=== PATIENT | female | born 1985 | race Caucasian/White ===

== ENCOUNTER → 2017-01-01 | Outpatient (CLI) | payer OTHER ==
[2017-01-01 19:37] LABS: BASOPHILS # (AUTO) 0.1 10^3/uL (0.0-0.1); BASOPHILS % (AUTO) 0.7 %; EOSINOPHILS # (AUTO) 0.5 10^3/uL (0.0-0.7); EOSINOPHILS % (AUTO) 5.7 %; HCT - HEMATOCRIT 41.5 % (37.0-47.0); HGB - HEMOGLOBIN 13.4 g/dL (12.0-16.0); LYMPHOCYTES # (AUTO) 1.7 10^3/uL (1.5-3.5); LYMPHOCYTES % (AUTO) 20.3 %; MEAN CORPUSCULAR HEMOGLOBIN 28.6 pg (27.0-31.0); MEAN CORPUSCULAR HGB CONC 32.4 g/dL (32.0-36.0); MEAN CORPUSCULAR VOLUME 88.2 fL (81.0-99.0); MEAN PLATELET VOLUME 6.8 fL (7.9-10.8); MONOCYTES # (AUTO) 0.8 10^3/uL (0.0-1.0); MONOCYTES % (AUTO) 9.3 %; NEUTROPHILS # (AUTO) 5.3 10^3/uL (1.5-6.6); RED CELL DISTRIBUTION WIDTH 14.7 % (12.0-15.0); UNCORRECTED WHITE BLOOD COUNT 8.3 x10^3/uL; WHITE BLOOD COUNT 8.3 x10^3/uL (4.8-10.8)
[2017-01-01 20:16] LABS: ALBUMIN/GLOBULIN RATIO 1.6 (1.0-2.2); BILIRUBIN,TOTAL 0.8 mg/dL (0.2-1.0); BUN - BLOOD UREA NITROGEN 9 mg/dL (6-20); CALCIUM 8.9 mg/dL (8.5-10.3); CARBON DIOXIDE - CO2 25 mmol/L (21-32); CHLORIDE 103 mmol/L (101-111); CHOL/HDL RATIO 4.5 (<4.4); CHOLESTEROL 187 mg/dL; CREATININE 0.6 mg/dL (0.4-1.0); GFR - MDRD 115 (>89); GLUCOSE 94 mg/dL (70-100); HDL CHOLESTEROL 42 mg/dL; LDL/HDL RATIO 2.3 (<4.4); POTASSIUM 3.6 mmol/L (3.5-5.0); SODIUM 137 mmol/L (135-145); TOTAL PROTEIN 6.9 g/dL (6.7-8.2); TRIGLYCERIDES 249 mg/dL; VLDL CHOLESTEROL 50 mg/dL
== END ==
LOC: LAB.WCP 10:45
PROVIDERS: ATTEND Family Medicine
DX: E88.81 Metabolic syndrome and other insulin resistance (principal); R03.0 Elevated blood-pressure reading, without diagnosis of hypertension; G43.909 Migraine, unspecified, not intractable, without status migrainosus
CPT/HCPCS: 36415; 80053; 80061; 84443; 85025

== ENCOUNTER 2017-03-02 15:21 | Outpatient (CLI) | payer OTHER | END 2017-03-02 15:22 | disposition home or self-care (01) | LOC: LAB.WCP 15:21 | PROVIDERS: ATTEND Physician Assistant Medical | DX: N91.2 Amenorrhea, unspecified (principal) | CPT/HCPCS: 36415; 84702 ==

== ENCOUNTER 2017-03-03 20:07 | Outpatient (CLI) | payer OTHER ==
--- NOTE | 2017-03-03 22:05 | Ultrasound Preliminary Report ---
Exam: US OB TRANSVAGINAL IMPRESSION: 1. Single viable intrauterine at EGA 6 weeks 3 days with ROMI 10/24/2017 based on crown-rump length, which is concordant with clinical dates. 2. IUD is present within the uterus below the gestational sac. 3. There is a tiny flavia-gestational hypoechoic focus. RADIA The call report notification system was initiated by Dr. Luisito Antony at 21:49 hrs on 03/03/17. The referring provider could not be reached, report signed to expedite its availability. SITE ID: [id number]
--- NOTE | 2017-03-03 22:05 | Ultrasound Preliminary Report ---
Exam: US OB FIRST TRIMESTER IMPRESSION: 1. Single viable intrauterine at EGA 6 weeks 3 days with ROMI 10/24/2017 based on crown-rump length, which is concordant with clinical dates. 2. IUD is present within the uterus below the gestational sac. 3. There is a tiny flavia-gestational hypoechoic focus. RADIA The call report notification system was initiated by Dr. Luisito Antony at 21:49 hrs on 03/03/17. The referring provider could not be reached, report signed to expedite its availability. SITE ID: [id number]
--- NOTE | 2017-03-03 22:08 | Ultrasound Report ---
EXAM: FIRST TRIMESTER OBSTETRIC ULTRASOUND (Less than 11 weeks) EXAM DATE: 03/03/2017 09:37 PM. CLINICAL HISTORY: AMENORRHEA. Positive test. The patient has an IUD. LMP: 01/15/2017. COMPARISONS: None. TECHNIQUE: Transabdominal and transvaginal ultrasound examination with static image documentation. CLINICAL DATES: EGA 6 weeks 5 days with ROMI 10/22/2017 based on LMP. ASSESSMENT: Gestational Sac: Single intrauterine. Mean gestational sac diameter: 18 mm = 6 weeks 5 days. Embryo: CRL (crown-rump length) 5 mm = 6 weeks 3 days. Cardiac activity: 130 beats per minute. Yolk sac: 3 mm. Amniotic fluid: Not accurately assessed at this gestational age. Early placenta: Not visible at this gestational age. Other: There is a 0.3 x 0.4 cm perigestational hypoechoic focus. MATERNAL STRUCTURES: Uterus: Anteverted. The gestational sac is located above the IUD. Cervix: Closed. Right Ovary/Adnexa: A hypoechoic structure, possible corpus luteum measures approximately 1.6 x 1.9 x 2.2 cm. The ovary measures 4.1 x 2.6 x 2.6 cm, volume 14.2 cc. Left Ovary/Adnexa: Unremarkable. The ovary measures 2.3 x 1.4 x 3.3 cm, volume 5.6 cc. Free Fluid: None. Other: None. IMPRESSION: 1. Single viable intrauterine at EGA 6 weeks 3 days with ROMI 10/24/2017 based on crown-rump length, which is concordant with clinical dates. 2. IUD is present within the uterus below the gestational sac. 3. There is a tiny flavia-gestational hypoechoic focus. RADHAA The call report notification system was initiated by Dr. Luisito Antony at 21:49 hrs on 03/03/17. The referring provider could not be reached, report signed to expedite its availability. Referring Provider Line: [phone] SITE ID: [id number]
== END 2017-03-03 20:08 | disposition home or self-care (01) ==
LOC: DI 20:07
PROVIDERS: ATTEND Family Medicine
DX: Z34.81 Encounter for supervision of other normal pregnancy, first trimester (principal); Z97.5 Presence of (intrauterine) contraceptive device
CPT/HCPCS: 76801; 76817

== ENCOUNTER 2017-03-06 21:08 | Emergency (ER) | payer OTHER ==
--- NOTE | 2017-03-06 21:39 | ED Physician Documentation ---
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: Breast reduction - Present Medications Home Medications: Ambulatory Orders Medication Instructions Recorded Confirmed No Known Home Medications [No 03/06/17 03/06/17 Known Home Medications] - Allergies Allergies/Adverse Reactions: Allergies Allergy/AdvReac Type Severity Reaction Status Date / Time No Known Drug Allergies Allergy Verified 03/06/17 21:14 - Social History Does the pt smoke?: No Smoking Status: Never smoker Does the pt drink ETOH?: No - Immunizations Immunizations are current?: Yes PD ED PE NORMAL - Vitals Vital signs reviewed: Yes - General General: Alert and oriented X 3, No acute distress - HEENT HEENT: Moist mucous membranes - Neck Neck: Supple, no meningeal sign - Cardiac Cardiac: RRR - Respiratory Respiratory: No respiratory distress, Clear bilaterally - Abdomen Abdomen: Soft, Non tender, Non distended - Derm Derm: Warm and dry - Extremities Extremities: No edema - Neuro Neuro: Alert and oriented X 3 - Psych Psych: Normal mood, Normal affect Results - Vitals Vitals: Vital Signs - 24 hr 03/06/17 03/06/17 21:10 22:47 Temperature 36.7 C Heart Rate 78 74 Respiratory 16 18 Rate Blood Pressure 182/104 H 155/96 H O2 Saturation 99 98 Oxygen O2 Source Room air - Labs Labs: Laboratory Tests 03/06/17 03/06/17 03/06/17 22:09 22:09 22:09 WBC 12.5 H RBC 4.70 Hgb 13.8 Hct 40.3 MCV 85.8 MCH 29.3 MCHC 34.1 RDW 14.8 Plt Count 326 MPV 6.4 L Neut # 9.4 H Lymph # 2.1 Dawes # 0.8 Eos # 0.1 Baso # 0.1 Absolute Nucleated RBC 0.00 Nucleated RBC % 0.0 Sodium 134 L Potassium 3.3 L Chloride 102 Carbon Dioxide 23 Anion Gap 9.0 BUN 14 Creatinine 0.8 Estimated GFR (MDRD) 83 L Glucose 124 H Calcium 9.3 Total Bilirubin 0.4 AST 23 ALT 24 Alkaline Phosphatase 56 Total Protein 7.4 Albumin 4.6 Globulin 2.8 Albumin/Globulin Ratio 1.6 Lipase 51 HCG, Quant 64553.00 Urine Color Urine Clarity Urine pH Ur Specific [place] Urine Protein Urine Glucose (UA) Urine Ketones Urine Occult Blood Urine Nitrite Urine Bilirubin Urine Urobilinogen Ur Leukocyte Esterase Urine RBC Urine WBC Ur Squamous Epith Cells Urine Bacteria Ur Microscopic Review Urine Culture Comments 03/06/17 22:09 WBC RBC Hgb Hct MCV MCH MCHC RDW Plt Count MPV Neut # Lymph # Dawes # Eos # Baso # Absolute Nucleated RBC Nucleated RBC % Sodium Potassium Chloride Carbon Dioxide Anion Gap BUN Creatinine Estimated GFR (MDRD) Glucose Calcium Total Bilirubin AST ALT Alkaline Phosphatase Total Protein Albumin Globulin Albumin/Globulin Ratio Lipase HCG, Quant Urine Color YELLOW Urine Clarity CLEAR Urine pH 6.0 Ur Specific [place] <=1.005 Urine Protein NEGATIVE Urine Glucose (UA) NEGATIVE Urine Ketones NEGATIVE Urine Occult Blood MODERATE H Urine Nitrite NEGATIVE Urine Bilirubin NEGATIVE Urine Urobilinogen 0.2 (NORMAL) Ur Leukocyte Esterase NEGATIVE Urine RBC 0-5 Urine WBC 0-3 Ur Squamous Epith Cells FEW Squamous Urine Bacteria Few Ur Microscopic Review INDICATED Urine Culture Comments NOT INDICATED PD MEDICAL DECISION MAKING - ED course Complexity details: reviewed results, re-evaluated patient, considered differential, d/w patient, d/w family, d/w data migration consultant (Dr. Rose (OB) will come and see the patient. ) ED course: Dr. Rose came and evaluated the patient in the emergency department. She removed the IUD. Patient was given a dose of labetalol and Dr. Christine Rose called in a prescription for labetalol to [facility] to start in the morning. The patient has a history of pre-existing hypertension, not on medications currently. Laboratory tests were drawn as well, no acute abnormalities. She will follow-up in the OB clinic this week for repeat blood pressure check as well as repeat ultrasound. Patient counseled regarding signs and symptoms for which I believe and urgent re-evaluation would be necessary. Patient with good understanding of and agreement to plan and is comfortable going home at this time This document was made in part using voice recognition software. While efforts are made to proofread this document, sound alike and grammatical errors may occur. Bedside ultrasound was performed which reveals a gestational sac consistent with dates, but unable to visualize IUP at this time. As she had a recent US, will not repeat formal US today. Departure - Departure Disposition: 01 Home, Self Care Clinical Impression: Threatened affecting intrauterine , Encounter for IUD removal , Hypertension affecting in first trimester Condition: Good Instructions: ED Miscarriage Poss Follow-Up: Johnathan Flores MD [Primary Care Provider] - Christine Rose DO [Provider Admit Priv/Credential] - Within 3 Days Comments: Follow up in the OB clinic for a repeat ultrasound and blood pressure check this week. Dr. Rose has called in a prescription for you for your blood pressure to [facility] to start tomorrow. We gave you a dose tonight. Return if you worsen. Discharge Date/Time: 03/06/17 22:55
[2017-03-06] MEDS ORDERED: LABETALOL 100 MG TABLET PO STA (22:09)
[2017-03-06 22:20] LABS: BASOPHILS # (AUTO) 0.1 10^3/uL (0.0-0.1); BASOPHILS % (AUTO) 0.5 %; EOSINOPHILS # (AUTO) 0.1 10^3/uL (0.0-0.7); HCT - HEMATOCRIT 40.3 % (37.0-47.0); HGB - HEMOGLOBIN 13.8 g/dL (12.0-16.0); LYMPHOCYTES # (AUTO) 2.1 10^3/uL (1.5-3.5); LYMPHOCYTES % (AUTO) 16.5 %; MEAN CORPUSCULAR HEMOGLOBIN 29.3 pg (27.0-31.0); MEAN CORPUSCULAR HGB CONC 34.1 g/dL (32.0-36.0); MEAN CORPUSCULAR VOLUME 85.8 fL (81.0-99.0); MEAN PLATELET VOLUME 6.4 fL (7.9-10.8); MONOCYTES # (AUTO) 0.8 10^3/uL (0.0-1.0); MONOCYTES % (AUTO) 6.4 %; NEUTROPHILS # (AUTO) 9.4 10^3/uL (1.5-6.6); NEUTROPHILS % (AUTO) 75.6 %; RED CELL DISTRIBUTION WIDTH 14.8 % (12.0-15.0); UNCORRECTED WHITE BLOOD COUNT 12.5 x10^3/uL; WHITE BLOOD COUNT 12.5 x10^3/uL (4.8-10.8)
[2017-03-06 22:23] LABS: BILIRUBIN,URINE NEGATIVE (NEGATIVE)
[2017-03-06 22:28] LABS: UA w/ MICROSCOPIC CHARGE YES
[2017-03-06 22:31] LABS: UR CULTURE IF IND NOT INDICATED; WBC,URINE 0-3 /HPF (0-5)
[2017-03-06 22:32] LABS: ALBUMIN/GLOBULIN RATIO 1.6 (1.0-2.2); BILIRUBIN,TOTAL 0.4 mg/dL (0.2-1.0); CALCIUM 9.3 mg/dL (8.5-10.3); CREATININE 0.8 mg/dL (0.4-1.0); POTASSIUM 3.3 mmol/L (3.5-5.0); TOTAL PROTEIN 7.4 g/dL (6.7-8.2)
[2017-03-06 22:49] VITALS: BP 155/96
--- NOTE | 2017-03-08 17:17 | Discharge Plan ---
DATE OF SERVICE: 03/06/2017 Physician: Christine Rose DO IDENTIFICATION: This is a 31-year-old G3, P2-0-0-2, with approximately 6-week intrauterine . LMP is 01/15/2017. HISTORY OF PRESENT ILLNESS: I first learned about the patients case when Dr. Abraham Flores, primary care physician, called me on Wednesday morning, 03/05/2017, with the patient's situation. He had found out that the patient was with an IUD in situ. I then told Dr. Flores we would be happy to see the patient and remove the IUD in the clinic. The patient, however, started having some bleeding and presented to [facility]. I was asked by Dr. Huddleston to see this korin patient. The patient is present here with her significant other, Lawrence. The patient states that though this was not planned is desired. The patient states that she would like to do everything that she can to keep this . Currently, she is denying any abdominal pain. PAST MEDICAL HISTORY: 1. Hypertension that was newly diagnosed in about November or December of this year. She was started on antihypertensives, but was told to stop this after she was told that she was . 2. Migraine headaches. PAST SURGICAL HISTORY: 1. Oral surgery. 2. Breast reduction, 2002. ALLERGIES: NO KNOWN DRUG ALLERGIES. MEDICATIONS: None. SOCIAL HISTORY: Denies any tobacco use. She does consume alcohol on a social basis. The patient does smoke, dab and eat edible marijuana. This is done for both social reasons for headaches, as well as for her sleep. 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 The patient's youngest child is 9 years old. PAST SURGICAL HISTORY: Two term spontaneous vaginal deliveries with both babies weighing 8 pounds 13 ounces. PAST GYNECOLOGIC HISTORY: Her ParaGard IUD was placed about 3 years ago. She has had both the ParaGard and the Mirena IUD in the past, both before and after her previous pregnancies without difficulty. The patient denies any history of sexually transmitted diseases or abnormal Pap smears. She states that with the ParaGard IUD her periods have been much heavier in which she has to use a tampon and a pad and the first day of her menses. FAMILY HISTORY: Noncontributory. REVIEW OF SYSTEMS: Negative unless otherwise stated. PHYSICAL EXAMINATION: VITAL SIGNS: Temperature is 98.1, heart rate 78, blood pressure 182/104, respiratory rate 16, O2 saturations 99%. GENERAL: The patient is a well-developed, well-nourished, female who appears to be her stated age. HEENT: The patient does have a hairy upper lip. Otherwise, within normal limits. ABDOMEN: Soft, nontender. PELVIC: Female external genitalia. Urethra Bartholin's and [place]'s within normal limits. Cervix is mildly posterior with a small white IUD string protruding from the external cervical os approximately 0.25 cm. LABORATORY DATA: Have not been drawn yet. PROCEDURE: I discussed with the patient and her significant other, Lawrence that the current recommendations for to pull the IUD. The recommendation of this would be in order to minimize any future risk of infection or rupture of membranes with the IUD. However, in removing the IUD this may cause her to have a spontaneous . Given the risks and benefits, I still recommended to have the ParaGard IUD removed. After all the patient's and her significant other, Lawrence's, questions were answered to her satisfaction, she verbalized her desire to proceed with removing the ParaGard intrauterine device. A speculum was placed in the vagina. The IUD strings were visualized. The ParaGard IUD strings were grasped gently and pulled. The ParaGard IUD was removed easily without difficulty. There is no bleeding after removing the IUD. The patient tolerated the procedure well. ASSESSMENT: 1. A 31-year-old G3, P2-0-0-2, with approximately 6-week intrauterine . 2. Status post removal of ParaGard intrauterine device. 3. Chronic hypertension, newly diagnosed. PLAN: 1. ParaGard IUD has been removed. 2. Recommend the patient to start taking vitamins as well as calcium. 3. The patient to see us at [facility] this week for a followup ultrasound to reassure us of the viability of the , but also to do a blood pressure check. 4. We will call in a prescription to [email or web address] for labetalol 100 mg 1 tab p.o. b.i.d. most likely will need to increase this dose as the continues. 5. Spontaneous precautions. TD: 03/07/2017 18:22 MTDYohannes
--- NOTE | 2017-03-10 07:12 | CONSULTATION NOTE ---
DATE OF SERVICE: 03/06/2017 Physician: Christine Rose DO IDENTIFICATION: This is a 31-year-old G3, P2-0-0-2, with approximately 6-week intrauterine . LMP is 01/15/2017. HISTORY OF PRESENT ILLNESS: I first learned about the patients case when Dr. Abraham Flores, primary care physician, called me on Wednesday morning with the patient's situation. He had found out that the patie nt was with an IUD in situ. I then told Dr. Flores we would be happy to see the patient and minoo ve the IUD. The patient, however, started having some bleeding and presented to [facility]. I was asked by Dr. Huddleston to see this korin patient. The patient is present here with her significant other, Lawrence. The patient states that though this was not planned is desired. The patient states that she would like to do everything that she can to keep this . Currently, she is denying any abdominal pain. PAST MEDICAL HISTORY: 1. Hypertension that was newly diagnosed in about November or December of this year. She was starte d on antihypertensives, but was told to stop this after she was told that she was . 2. Migraine headaches. PAST SURGICAL HISTORY: 1. Oral surgery. 2. Breast reduction, 2002. ALLERGIES: NO KNOWN DRUG ALLERGIES. MEDICATIONS: None. SOCIAL HISTORY: Denies any tobacco use. She does consume alcohol on a social basis. The patient do es smoke, dab and eat edible marijuana. This is done for both social reasons for headaches, as well as for her sleep. 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 The patient's youngest child is 9 years old. PAST SURGICAL HISTORY: Two term spontaneous vaginal deliveries with both babies weighing 8 pounds 13 ounces. PAST GYNECOLOGIC HISTORY: Her ParaGard IUD was placed about 3 years ago. She has had both the Christine beba and the Mirena IUD in the past, both before and after her previous pregnancies without difficulty. The p atient denies any history of sexually transmitted diseases or abnormal Pap smears. She states that with the ParaGard IUD her periods have been much heavier in which she has to use a tampon and a pad and the first day o f her menses. FAMILY HISTORY: Noncontributory. REVIEW OF SYSTEMS: Negative unless otherwise stated. PHYSICAL EXAMINATION: VITAL SIGNS: Temperature is 98.1, heart rate 78, blood pressure 182/104, respiratory rate 16, O2 sat urations 99%. GENERAL: The patient is a well-developed, well-nourished, female who appears to be her sta shivani age. HEENT: The patient does have a hairy upper lip. Otherwise, within normal limits. ABDOMEN: Soft, nontender. PELVIC: Female external genitalia. Urethra Bartholin's and [place] [employer] [place]'s within normal limits. Cervix is mildly posterior with a small white IUD string protruding from the external cervical os approximately 0.25 c m. LABORATORY DATA: Have not been drawn yet. PROCEDURE: I discussed with the patient and her significant other, Lawrence that the current recommendat ions for to pull the IUD. The recommendation of this would be in order to minimize any future risk of infecti on or rupture of membranes with the IUD. However, in removing the IUD this may cause her to have a spontan eous . Given the risks and benefits, I still recommended to have the ParaGard IUD removed. After all the patient's and her significant other, Lawrence's, questions were answered to her satisfaction, she verbal ized her desire to proceed with removing the ParaGard intrauterine device. A speculum was placed in the vagin a. The IUD strings were visualized. The ParaGard IUD strings were grasped gently and pulled. The ParaGard IUD was removed easily without difficulty. There is no bleeding after removing the IUD. The patient tolerat ed the procedure well. ASSESSMENT: 1. A 31-year-old G3, P2-0-0-2, with approximately 6-week intrauterine . 2. Status post removal of ParaGard intrauterine device. 3. Chronic hypertension, newly diagnosed. PLAN: 1. ParaGard IUD has been removed. 2. Recommend the patient to start taking vitamins as well as calcium. 3. The patient to see us at [facility] this week for a followup ultrasound to reassu re us of the viability of the , but also to do a blood pressure check. 4. We will call in a prescription to [facility] for labetalol 100 mg 1 tab p.o. b.i.d. most karlene vences will need to increase this dose as the continues. 5. Spontaneous precautions. TD: 03/07/2017 18:22
== END 2017-03-06 22:55 | disposition home or self-care (01) ==
LOC: ED 21:08
PROC: 0UPD7HZ Removal of Contraceptive Device from Uterus and Cervix, Via Natural or Artificial Opening (ICD-10-PCS; principal; 2017-03-06)
DX: O20.0 Threatened abortion (principal); Z30.432 Encounter for removal of intrauterine contraceptive device; O10.911 Unspecified pre-existing hypertension complicating pregnancy, first trimester; Z3A.01 Less than 8 weeks gestation of pregnancy
CPT/HCPCS: 36415; 58301; 80053; 81001; 83690; 84702; 85025; 86900; 86901; 99283; 99284; A9270; 81003; 87086

== ENCOUNTER 2017-04-01 12:21 | Outpatient (CLI) | payer OTHER ==
[2017-04-01 12:52] LABS: BILIRUBIN,URINE NEGATIVE (NEGATIVE); GLUCOSE, URINE (UA) NEGATIVE (NEGATIVE); KETONES,URINE (UA) NEGATIVE (NEGATIVE); LEUKOCYTE ESTERASE, URINE SMALL (NEGATIVE); NITRITE,URINE NEGATIVE (NEGATIVE); OCCULT BLOOD,URINE NEGATIVE (NEGATIVE); PH,URINE 7.5 PH (5.0-7.5); PROTEIN,URINE NEGATIVE (NEGATIVE); UROBILINOGEN,URINE 0.2 (NORMAL) E.U./dL (NORMAL)
[2017-04-01 12:58] LABS: AMORPHOUS SEDIMENT,UR Moderate /LPF; BACTERIA,URINE Rare /HPF (None Seen); CLARITY,URINE HAZY (CLEAR); RBC,URINE 0-5 /HPF (0-5); SQUAMOUS EPITHELIAL CELL,UR FEW Squamous (<= Few)
[2017-04-01 13:00] LABS: BASOPHILS # (AUTO) 0.1 10^3/uL (0.0-0.1); BASOPHILS % (AUTO) 0.5 %; EOSINOPHILS # (AUTO) 0.1 10^3/uL (0.0-0.7); EOSINOPHILS % (AUTO) 0.9 %; HGB - HEMOGLOBIN 12.9 g/dL (12.0-16.0); LYMPHOCYTES # (AUTO) 1.8 10^3/uL (1.5-3.5); LYMPHOCYTES % (AUTO) 17.5 %; MEAN CORPUSCULAR HEMOGLOBIN 30.1 pg (27.0-31.0); MEAN CORPUSCULAR HGB CONC 34.1 g/dL (32.0-36.0); MEAN CORPUSCULAR VOLUME 88.1 fL (81.0-99.0); MEAN PLATELET VOLUME 6.4 fL (7.9-10.8); MONOCYTES # (AUTO) 0.9 10^3/uL (0.0-1.0); MONOCYTES % (AUTO) 8.6 %; NEUTROPHILS # (AUTO) 7.4 10^3/uL (1.5-6.6); NEUTROPHILS % (AUTO) 72.5 %; PLT - PLATELET COUNT 353 10^3/uL (130-450); RED BLOOD COUNT 4.31 10^6/uL (4.20-5.40); RED CELL DISTRIBUTION WIDTH 15.9 % (12.0-15.0); WHITE BLOOD COUNT 10.1 x10^3/uL (4.8-10.8)
[2017-04-01 13:03] LABS: ALBUMIN 3.9 g/dL (3.2-5.5); ALBUMIN/GLOBULIN RATIO 1.4 (1.0-2.2); BILIRUBIN,TOTAL 0.4 mg/dL (0.2-1.0); CREATININE 0.6 mg/dL (0.4-1.0); TOTAL PROTEIN 6.7 g/dL (6.7-8.2)
[2017-04-02 12:47] LABS: HIV AG/AB 4TH GEN NON-REACTIVE (NON-REACTIVE)
[2017-04-02 13:36] LABS: HEPATITIS B SURFACE ANTIGEN NON-REACTIVE (NON-REACTIVE)
== END 2017-04-01 12:22 | disposition home or self-care (01) ==
LOC: LAB 12:21
PROVIDERS: ATTEND Obstetrics & Gynecology
DX: O10.011 Pre-existing essential hypertension complicating pregnancy, first trimester (principal); Z36.9 Encounter for antenatal screening, unspecified
CPT/HCPCS: 36415; 80053; 81001; 81599; 82575; 84163; 84702; 85025; 86592; 86762; 86850; 86900; 86901; 87340; 87389

== ENCOUNTER 2017-04-04 12:48 | Outpatient (CLI) | payer OTHER | END 2017-04-04 12:49 | disposition home or self-care (01) | LOC: DI 12:48 | PROVIDERS: ATTEND Obstetrics & Gynecology | DX: O10.011 Pre-existing essential hypertension complicating pregnancy, first trimester (principal) | CPT/HCPCS: 93306 ==

== ENCOUNTER 2017-04-05 18:47 | Observation (INO) | payer OTHER ==
[2017-04-05 20:06] LABS: BASOPHILS % (AUTO) 0.3 %; EOSINOPHILS # (AUTO) 0.1 10^3/uL (0.0-0.7); EOSINOPHILS % (AUTO) 0.8 %; HGB - HEMOGLOBIN 12.8 g/dL (12.0-16.0); LYMPHOCYTES # (AUTO) 1.7 10^3/uL (1.5-3.5); LYMPHOCYTES % (AUTO) 14.7 %; MEAN CORPUSCULAR HEMOGLOBIN 30.1 pg (27.0-31.0); MEAN CORPUSCULAR VOLUME 88.5 fL (81.0-99.0); MEAN PLATELET VOLUME 6.4 fL (7.9-10.8); MONOCYTES # (AUTO) 0.8 10^3/uL (0.0-1.0); MONOCYTES % (AUTO) 6.7 %; NEUTROPHILS # (AUTO) 9.1 10^3/uL (1.5-6.6); NEUTROPHILS % (AUTO) 77.5 %; PLT - PLATELET COUNT 335 10^3/uL (130-450); RED BLOOD COUNT 4.26 10^6/uL (4.20-5.40); RED CELL DISTRIBUTION WIDTH 16.1 % (12.0-15.0); WHITE BLOOD COUNT 11.7 x10^3/uL (4.8-10.8)
[2017-04-05] MEDS ORDERED: LABETALOL 20 MG/4 ML SYRINGE IVP STA ×2 (20:20→20:38)
[2017-04-05 20:21] LABS: ALBUMIN 3.8 g/dL (3.2-5.5); ALBUMIN/GLOBULIN RATIO 1.4 (1.0-2.2); BILIRUBIN,TOTAL 0.6 mg/dL (0.2-1.0); CALCIUM 9.2 mg/dL (8.5-10.3); CREATININE 0.5 mg/dL (0.4-1.0); TOTAL PROTEIN 6.5 g/dL (6.7-8.2)
[2017-04-05] MEDS ORDERED: ACETAMINOPHEN 500 MG TABLET PO STA (20:21)
[2017-04-05 20:29] LABS: BILIRUBIN,URINE NEGATIVE (NEGATIVE); GLUCOSE, URINE (UA) NEGATIVE (NEGATIVE); KETONES,URINE (UA) NEGATIVE (NEGATIVE); LEUKOCYTE ESTERASE, URINE TRACE (NEGATIVE); NITRITE,URINE NEGATIVE (NEGATIVE); OCCULT BLOOD,URINE NEGATIVE (NEGATIVE); PROTEIN,URINE NEGATIVE (NEGATIVE); UROBILINOGEN,URINE 0.2 (NORMAL) E.U./dL (NORMAL)
[2017-04-05 20:30] LABS: CLARITY,URINE HAZY (CLEAR)
[2017-04-05 20:45] LABS: BACTERIA,URINE Few /HPF (None Seen); RBC,URINE 0-5 /HPF (0-5); SQUAMOUS EPITHELIAL CELL,UR MANY Squamous (<= Few)
[2017-04-05] MEDS ORDERED: LABETALOL 20 MG/4 ML SYRINGE IVP ONE (20:46)
--- NOTE | 2017-04-05 20:52 | ED Physician Documentation ---
PD HPI HEADACHE - Stated complaint Stated Complaint: HIGH BLOOD PRESSURE - Chief complaint Chief Complaint: General - History obtained from History obtained from: Patient, Family - History of Present Illness Timing - onset: How many days ago (3) Timing - onset during: Rest Timing - details: Gradual onset, Still present Location: Global Quality: Aching Associated symptoms: No: Fever, Stiff neck, Nausea Contributing factors: Hypertension Similar symptoms before: Work up / diagnostics, Treatment, Follow up Recently seen: Clinic - Additional information Additional information: Patient is a 31 year old female 11 weeks by dates who is presenting to the emergency department for headaches and hypertension. Patient states that she has had a history of htn. Patient was on lisinopril but was switched to labetalol when she was found to be . Patient has been increasing her dose (with her ob) and is now up to 300mg bid. patient states that she was talking to the nurses line today and her pressures remained elevated and she was having headaches so they had her come to the emergency department for evaluation. Upon initial evaluation patient complained of a mild headache and occasional shortness of breath. Patient did have a recent echo and was within normal limits. Review of Systems Constitutional: denies: Fever, Chills Eyes: reports: Photophobia. denies: Loss of vision, Decreased vision Ears: denies: Ear pain Nose: reports: Reviewed and negative Throat: reports: Reviewed and negative Cardiac: denies: Chest pain / pressure, Palpitations, Calf pain Respiratory: denies: Cough, Wheezing GI: denies: Abdominal Pain, Nausea, Vomiting : denies: Dysuria, Frequency, Hesitancy, Discharge, Vaginal bleeding Neurologic: reports: Headache. denies: Near syncope, Syncope, LOC Psychiatric: denies: Depressed, Suicidal Immunocompromised: denies: Immunocompromised PD PAST MEDICAL HISTORY - Past Medical History Cardiovascular: Congestive heart failure Respiratory: None Neuro: None Endocrine/Autoimmune: None GI: None HOGSHEAD WEIGHER: None : None HEENT: None Psych: None Musculoskeletal: None Derm: None - Past Surgical History Past Surgical History: Yes /HOGSHEAD WEIGHER: Breast reduction - Present Medications Home Medications: Ambulatory Orders Medication Instructions Recorded Confirmed Labetalol [Trandate] 3 tab PO BID 04/05/17 04/05/17 - Allergies Allergies/Adverse Reactions: Allergies Allergy/AdvReac Type Severity Reaction Status Date / Time No Known Drug Allergies Allergy Verified 04/05/17 19:06 - Social History Does the pt smoke?: No Smoking Status: Never smoker Does the pt drink ETOH?: No - Immunizations Immunizations are current?: Yes - POLST Patient has POLST: No PD ED PE NORMAL - Vitals Vital signs reviewed: Yes - General General: Alert and oriented X 3, No acute distress - HEENT HEENT: Atraumatic, PERRL, Moist mucous membranes, Pharynx benign - Neck Neck: Supple, no meningeal sign, No JVD - Cardiac Cardiac: RRR - Respiratory Respiratory: No respiratory distress - Abdomen Abdomen: Soft - Derm Derm: Normal color, No rash - Extremities Extremities: No deformity - Neuro Neuro: Alert and oriented X 3, binder lockstitch 2-12 intact, No motor deficit, No sensory deficit, Normal speech Results - Vitals Vitals: Vital Signs - 24 hr 04/05/17 04/05/17 04/05/17 19:03 20:01 20:35 Temperature 36.6 C Heart Rate 82 95 Respiratory 14 16 Rate Blood Pressure 179/100 H 190/111 H 168/110 H O2 Saturation 100 99 04/05/17 04/05/17 20:40 20:50 Temperature Heart Rate 79 Respiratory 16 Rate Blood Pressure 176/103 H 163/110 H O2 Saturation 98 Oxygen O2 Source Room air - Labs Labs: Laboratory Tests 04/05/17 04/05/17 04/05/17 19:50 19:50 19:50 WBC 11.7 H RBC 4.26 Hgb 12.8 Hct 37.7 MCV 88.5 MCH 30.1 MCHC 34.0 RDW 16.1 H Plt Count 335 MPV 6.4 L Neut # 9.1 H Lymph # 1.7 Frio # 0.8 Eos # 0.1 Baso # 0.0 Absolute Nucleated RBC 0.00 Nucleated RBC % 0.0 Sodium 132 L Potassium 3.3 L Chloride 100 L Carbon Dioxide 23 Anion Gap 9.0 BUN 11 Creatinine 0.5 Estimated GFR (MDRD) 142 Glucose 104 H Calcium 9.2 Total Bilirubin 0.6 AST 27 ALT 20 Alkaline Phosphatase 37 L Troponin I < 0.04 B-Natriuretic Peptide Total Protein 6.5 L Albumin 3.8 Globulin 2.7 Albumin/Globulin Ratio 1.4 Lipase 44 Urine Color Urine Clarity Urine pH Ur Specific [place] Urine Protein Urine Glucose (UA) Urine Ketones Urine Occult Blood Urine Nitrite Urine Bilirubin Urine Urobilinogen Ur Leukocyte Esterase Urine RBC Urine WBC Ur Squamous Epith Cells Urine Bacteria Ur Microscopic Review Urine Culture Comments 04/05/17 04/05/17 19:50 19:50 WBC RBC Hgb Hct MCV MCH MCHC RDW Plt Count MPV Neut # Lymph # Frio # Eos # Baso # Absolute Nucleated RBC Nucleated RBC % Sodium Potassium Chloride Carbon Dioxide Anion Gap BUN Creatinine Estimated GFR (MDRD) Glucose Calcium Total Bilirubin AST ALT Alkaline Phosphatase Troponin I B-Natriuretic Peptide 28 Total Protein Albumin Globulin Albumin/Globulin Ratio Lipase Urine Color YELLOW Urine Clarity HAZY Urine pH 6.0 Ur Specific [place] 1.010 Urine Protein NEGATIVE Urine Glucose (UA) NEGATIVE Urine Ketones NEGATIVE Urine Occult Blood NEGATIVE Urine Nitrite NEGATIVE Urine Bilirubin NEGATIVE Urine Urobilinogen 0.2 (NORMAL) Ur Leukocyte Esterase TRACE H Urine RBC 0-5 Urine WBC 4-5 Ur Squamous Epith Cells MANY Squamous H Urine Bacteria Few Ur Microscopic Review INDICATED Urine Culture Comments NOT INDICATED - Rads (name of study) chest x-ray Radiology: Final report received (no acute disease process) Procedures - Bedside sono Bedside sono by EMP: pelvic/ob viable iup with fhr of 171 PD MEDICAL DECISION MAKING - ED course Complexity details: reviewed old records, reviewed results, re-evaluated patient , considered differential, d/w patient, d/w framing consultant ED course: Patient was seen and examined at bedside. ekg was performed. iv access was gained and labs were drawn. patient denied any acute chest pain. Patient was treated with labetalol 40mg IV and a gram of tylenol. Patient's blood work was fairly unremarkable but the blood pressures were not improving. Patient was treated with another dose of labetalol 40mg IV. chest x-ray was performed and was within normal limits. bedside ultrasound was performed and was within normal limits with a fhr of 171. patient's case was discussed with Dr. Lopez, covering ob. He recommended observation under his care. Patient was treated with additional 10mg of hydralizine. Patient was made aware of the decision and placed in observation. Departure - Departure Disposition: ED Place in Observation Clinical Impression: Hypertension affecting in first trimester Condition: Stable
--- NOTE | 2017-04-05 21:32 | XRAY Preliminary Report ---
Exam: XR CHEST 1 VIEW X-RAY IMPRESSION: No acute disease. [facility] SITE ID: [id number]
--- NOTE | 2017-04-05 21:32 | XRAY Report ---
EXAM: CHEST RADIOGRAPHY EXAM DATE: 04/05/2017 09:01 PM. CLINICAL HISTORY: Hypertensive, short of breath. COMPARISON: None. TECHNIQUE: 1 view. FINDINGS: Lungs/Pleura: Clear. No effusion or pneumothorax. Mediastinum: Within exam limitations, the cardiomediastinal contour is normal. Upper lobe vessels not distended. Other: Old left clavicle fracture. IMPRESSION: No acute disease. [facility] Referring Provider Line: [phone] SITE ID: [id number]
[2017-04-05] MEDS ORDERED: hydrALAZINE INJ 20 MG/ML VIAL IVP STA (21:43)
[2017-04-05] MEDS ORDERED: ONDANSETRON ODT 4 MG TABLET TL PRN (23:31)
[2017-04-05] MEDS ORDERED: LACTATED RINGERS 1,000 ML IV SCH (23:45)
[2017-04-06] MEDS ORDERED: POTASSIUM CHLORIDE 20 MEQ TABLET PO SCH (00:44)
[2017-04-06] MEDS ORDERED: LACTATED RINGERS 1,000 ML IV SCH (00:44)
[2017-04-06] MEDS: LABETALOL 100 MG TABLET PO SCH ×2 (00:53→09:24)
[2017-04-06] MEDS: ACETAMINOPHEN 500 MG TABLET PO PRN ×2 (00:53→09:25)
--- NOTE | 2017-04-06 05:08 | CONSULTATION NOTE ---
DATE OF SERVICE: 04/06/2017 Physician: Keri Olivo MD HISTORY OF PRESENT ILLNESS: This is a 31-year-old white female with a negative past medical history. She has had 2 healthy pregnancies that came to term and she delivered and the children are healthy. She states she had not seen a doctor in a long time up until December of last year and was found to have hypertension and started on lisinopril for control. She then got and her lisinopril was changed to labetalol. Over the past month or so she has had difficult to control blood pressure despite being compliant with her labetalol. She is coming to the emergency room several times over the past several days because of blood pressure control and today because of a headache. Blood pressure on today's emergency room visit was excessive at 180/110, and she was placed in observation for further BP and headache management and frequent blood pressure checks. The covering ADVERTISING CAMPAIGN MANAGER spoke to me about her, described that she is not in eclampsia and requested a Consult for management of hypertension. ALLERGIES: NONE. MEDICATIONS AT HOME: 1. Labetalol 200 p.o. b.i.d. now increased to 300 p.o. b.i.d. and about to change to 400 p.o. b.i.d. 2. She received hydralazine 10 mg IV x1 in the ER. 3. She received Tylenol through the ER. FAMILY HISTORY: Her father had hypertension and [place]. Her mother is healthy, but her maternal grandmother had hypertension and had 5 strokes. She has 1 sibling who is healthy without hypertension and is also currently without HTN. Her 2 living children are healthy. SOCIAL HISTORY: She is a nonsmoker, who never smoked, uses rare marijuana. No illicit drug use. She drinks no alcohol during . 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 REVIEW OF SYSTEMS: A comprehensive review of systems was performed and the pertinent positives are in the HPI and Social History. PHYSICAL EXAMINATION: GENERAL: Young white female supine in bed, in no distress. VITAL SIGNS: Blood pressure 178/113 in the emergency room. Her best blood pressure has dropped to 147/79. Her most recent blood pressure was 165/99. Her heart rate is in the 80s and 90s in sinus rhythm. She is afebrile, room air saturation 98%. HEENT: Unremarkable. Her oral mucosa is moist. NECK: No JVD supine. No carotid bruits or thyromegaly or lymphadenopathy. CHEST: Clear. HEART: Sounds normal. ABDOMEN: Soft. No bruits heard. Normal bowel sounds. Nontender. EXTREMITIES: No clubbing, cyanosis or edema. NEUROLOGIC: Intact. Yesterday as an outpatient, she had a cardiac Echo which was within normal limits. Today, she had a chest x-ray which is also within normal limits. The thoracic vessels are not distended. LABORATORY DATA: White blood count 11.7, normal differential. Hemoglobin 12.8 , platelet count 335. No INR was done. Sodium 132, potassium 3.3, BUN 11, creatinine 0.5. Normal liver tests and alkaline phosphatase. Troponin is not detectable. BNP normal at 28. Lipase normal. Urinalysis had a pH of 6 and was essentially normal. No EKG was done. IMPRESSION/DIAGNOSES: 1. Hypertension. 2. . 3. Hypokalemia. PLAN: I recommend continuation of hydralazine in a p.o. form in combination with her labetalol for blood pressure control, as long as hydralazine has a low risk profile for the fetus. Place on telemetry as labetolol can cause bradycardia, as a B-oscar. A low-sodium diet is advised and this was reviewed with the patient, especially because she is a summer clerk. She states she has already decreased salt intake such as "eating a lot of pickles". Replace her potassium, as potassium in a normal range indirectly helps create a lower blood pressure. Treat her pain with Tylenol; the pain alone could be raising blood pressure slightly. The patient needs workup for a primary cause of hypertension, the most common being renal artery stenosis or aortic coarctation. Also possible are hyperadrenal syndrome or elevated aldosterone. A urine 24-hour collection and Nephrology consult could be done as an outpatient for evaluation of these. If the patient feels better and has a better BP tomorrow, she can be discharged with p.r.n. Tylenol, labetalol at a dose that does not create bradycardia and hydralazine orally at either 10 t.i.d. or q.i.d. or 25 t.i.d. (sine this is a short-acting agent and there are no long-acting forms of hydralazine). She needs to follow up with her PCP and ADVERTISING CAMPAIGN MANAGER doctors for all of the above including the and status of the fetus. Thank you for allowing me to participate in the care of this patient. DEEP VENOUS THROMBOSIS PROPHYLAXIS: This is up to her ADVERTISING CAMPAIGN MANAGER admitting doctor. CODE STATUS: FULL CODE. ATTESTATION: The patient is expected to be discharged or transferred to another facility within 96 hours: Yes. TD: 04/06/2017 06:07 MTDYohannes
[2017-04-06] MEDS ORDERED: hydrALAZINE 10 MG TABLET PO SCH ×2 (06:00→09:00)
[2017-04-06 06:25] LABS: CALCIUM 8.8 mg/dL (8.5-10.3); CREATININE 0.5 mg/dL (0.4-1.0)
[2017-04-06] MEDS ORDERED: POTASSIUM CHLORIDE 10 MEQ CAPSULE PO SCH (08:00)
--- NOTE | 2017-04-06 08:24 | PROVIDER PROGRESS NOTE ---
Subjective - Prog Note Date Prog Note Date: 04/06/17 Prog Note Time: 08:21 - Subjective Pt reports feeling: Improved (Ptis Currently in Renal US.) Objective - Vital Signs/Intake & Output Reviewed Vital Signs: Yes Vital Signs: Vital Signs x48h Temp Pulse Resp BP Pulse Ox 04/06/17 07:57 37.3 C 73 18 131/67 H 99 04/06/17 06:19 36.7 C 82 18 140/79 H 99 04/06/17 02:01 81 16 146/76 H 98 Intake & Output: Intake & Output 04/03/17 04/04/17 04/05/17 04/06/17 23:59 23:59 23:59 23:59 Intake Total 350 Output Total 1100 Balance -750 - Lab Results Fish Bones: 04/05/17 19:50 04/06/17 06:04 Other Labs: Lab Results x24hrs 04/06/17 Range/Units 06:04 Sodium 136 (135-145) mmol/L Potassium 4.1 (3.5-5.0) mmol/L Chloride 106 (101-111) mmol/L Carbon Dioxide 22 (21-32) mmol/L Anion Gap 8.0 (6-13) BUN 8 (6-20) mg/dL Creatinine 0.5 (0.4-1.0) mg/dL Estimated GFR (MDRD) 142 (>89) Glucose 93 (70-100) mg/dL Calcium 8.8 (8.5-10.3) mg/dL Assessment/Plan - Problem List (1) Hypertension affecting in first trimester Impression: Pt is currently in renal US. BP controlled on Hydralizine ad labetolol. Looking for renal stenosis.
[2017-04-06 11:15] VITALS: BP 127/63
--- NOTE | 2017-04-06 12:16 | PROVIDER PROGRESS NOTE ---
Subjective - Prog Note Date Prog Note Date: 04/06/17 Prog Note Time: 12:14 - Subjective Pt reports feeling: Improved (Pt feeling well tolerating meds well) Objective - Vital Signs/Intake & Output Reviewed Vital Signs: Yes Vital Signs: Vital Signs x48h Temp Pulse Resp BP Pulse Ox 04/06/17 11:00 36.6 C 84 18 127/63 97 04/06/17 07:57 37.3 C 73 18 131/67 H 99 04/06/17 06:19 36.7 C 82 18 140/79 H 99 Intake & Output: Intake & Output 04/03/17 04/04/17 04/05/17 04/06/17 23:59 23:59 23:59 23:59 Intake Total 1382 Output Total 1580 Balance -198 - Objective General Appearance: positive: No acute distress, Alert Eyes Bilateral: positive: Normal inspection, PERRL, EOMI Respiratory: positive: Chest non-tender, No respiratory distress, Breath sounds nml Cardiovascular: positive: Regular rate & rhythm, No murmur, No gallop - Lab Results Fish Bones: 04/05/17 19:50 04/06/17 06:04 Other Labs: Lab Results x24hrs 04/06/17 Range/Units 06:04 Sodium 136 (135-145) mmol/L Potassium 4.1 (3.5-5.0) mmol/L Chloride 106 (101-111) mmol/L Carbon Dioxide 22 (21-32) mmol/L Anion Gap 8.0 (6-13) BUN 8 (6-20) mg/dL Creatinine 0.5 (0.4-1.0) mg/dL Estimated GFR (MDRD) 142 (>89) Glucose 93 (70-100) mg/dL Calcium 8.8 (8.5-10.3) mg/dL - Other Results/Comments Other Results/Comments: Renal ultrasound prelim normal. Assessment/Plan - Problem List (1) Hypertension affecting in first trimester Impression: excellent conrtol Discharge to home. Discharge meds Labetolol 400 mg bid hydralizine 10 mg qid. RTC 1 week Pt instructed to start baby ASA daily.
--- NOTE | 2017-04-06 12:20 | Discharge Plan ---
Discharge Plan Disposition: 01 Home, Self Care Condition: Good Diet: Regular Activity Restrictions: No Restrictions Shower Restrictions: No Driving Restrictions: No Weight Bearing: Full Weight No Smoking: If you smoke, Please STOP! Call for help. Follow-up with: Johnathan Flores MD [Primary Care Provider] - Idris Lopez MD [Provider Admit Priv/Credential] -
--- NOTE | 2017-04-06 18:41 | Ultrasound Report ---
RENAL ARTERY DUPLEX: 04/06/2017 CLINICAL INDICATION: Hypertension. TECHNIQUE: Real-time sonographic vascular imaging was performed by the school manager through the renal arteries utilizing both color-flow and Doppler flow analysis. Multiple customer development representative static images were saved for review RIGHT RENAL SIZE: 10.7 x 6.3 x 6.4 cm LEFT RENAL SIZE: 12.2 x 5.7 x 5.8 cm SEGMENTAL ARTERY PSV RI PSV RI Upper Pole 12 0.56 19 0.63 Mid Pole 17 0.62 19 0.58 Lower Pole 16 0.65 17 0.64 RIGHT RENAL ARTERY PSV RENAL ARTERY/AORTA RATIO Origin 125 1.17 Proximal 160 1.50 Mid 167 1.56 Distal 98 0.92 LEFT RENAL ARTERY PSV RENAL ARTERY/AORTA RATIO Origin 107 1.0 Proximal 154 1.44 Mid 125 1.17 Distal 65 0.61 PROX AORTA PSV: 107 cm/sec RRV patent: Yes LRV patent: Yes CRITERIA FOR CLASSIFICATION OF RENAL ARTERY DISEASE BY DUPLEX SCANNING RENAL ARTERY DIAMETER REDUCTION RENAL ARTERY PSV RAR Normal < 180 cm/sec < 3.5 < 60% >/= 180 cm/sec < 3.5 >/= 60% >/= 180 cm/sec >/=3.5 Occlusion (100%) No Signal No signal FINDINGS The right renal artery is well visualized throughout its length. Velocities and ratios are normal. The right renal vein is patent. Resistive indices are normal. The right kidney measures 10.7 x 6.4 x 6.3 cm, and demonstrates no hydronephrosis. The left renal artery is well visualized throughout its length. Velocities and ratios are normal. The left renal vein is patent. Resistive indices are normal. The left kidney measures 12.2 x 5.8 x 5.7 cm, and demonstrates no hydronephrosis. IMPRESSION: Normal renal artery duplex. TD: 04/06/2017 19:41 MTDYohannes
== END 2017-04-06 12:48 | disposition home or self-care (01) ==
LOC: ED 18:47 → OBS 23:31
PROVIDERS: ADMIT Obstetrics & Gynecology; ATTEND Obstetrics & Gynecology
DX: O10.911 Unspecified pre-existing hypertension complicating pregnancy, first trimester (principal); O99.281 Endocrine, nutritional and metabolic diseases complicating pregnancy, first trimester; E87.6 Hypokalemia; Z3A.11 11 weeks gestation of pregnancy; Z79.899 Other long term (current) drug therapy; Z86.79 Personal history of other diseases of the circulatory system; Z82.49 Family history of ischemic heart disease and other diseases of the circulatory system; Z82.3 Family history of stroke
CPT/HCPCS: 36415; 71045; 80048; 80053; 81001; 83690; 83880; 84484; 85025; 93005; 93975; 96361; 96374; 96375; 96376; 99218; 99285; A9270; J7120; Q0162; 81003; 87086

== ENCOUNTER 2017-04-08 16:56 | Observation (INO) | payer OTHER ==
--- NOTE | 2017-04-08 17:12 | ED Physician Documentation ---
History of Present Illness - Stated complaint Stated Complaint: HIGH BP/12 WEEKS PREG - Chief complaint Chief Complaint: General - History obtained from History obtained from: Patient (pt sent from OB office for HTN and 12 weeks EGA. pt denied any vaginal bleeding, cramping.) Review of Systems Constitutional: denies: Fever, Chills Eyes: reports: Decreased vision. denies: Loss of vision Ears: denies: Tinnitus/ringing Cardiac: denies: Chest pain / pressure, Palpitations Respiratory: denies: Dyspnea, Cough GI: denies: Abdominal Pain, Nausea, Vomiting, Constipation, Diarrhea : reports: Now EGA (12 weeks). denies: Dysuria, Frequency, Vaginal bleeding Skin: denies: Rash Musculoskeletal: denies: Neck pain, Back pain Neurologic: denies: Generalized weakness, Headache PD PAST MEDICAL HISTORY - Past Medical History Cardiovascular: Murmur Respiratory: None Neuro: None Endocrine/Autoimmune: None GI: None CLINICAL RESEARCH NURSE: None : None HEENT: None Psych: None Musculoskeletal: None Derm: None - Past Surgical History Past Surgical History: Yes /CLINICAL RESEARCH NURSE: Breast reduction - Present Medications Home Medications: Ambulatory Orders Medication Instructions Recorded Confirmed Labetalol [Trandate] 400 mg PO BID 04/05/17 04/08/17 Aspirin 81 mg PO DAILY 04/08/17 04/08/17 Hydralazine HCl 10 mg PO QID 04/08/17 04/08/17 - Allergies Allergies/Adverse Reactions: Allergies Allergy/AdvReac Type Severity Reaction Status Date / Time No Known Drug Allergies Allergy Verified 04/05/17 19:06 - Social History Does the pt smoke?: No Smoking Status: Never smoker Does the pt drink ETOH?: No - Immunizations Immunizations are current?: Yes - POLST Patient has POLST: No PD ED PE NORMAL - Vitals Vital signs reviewed: Yes - General General: Alert and oriented X 3, No acute distress - HEENT HEENT: Atraumatic, Moist mucous membranes - Cardiac Cardiac: RRR, No murmur - Respiratory Respiratory: No respiratory distress, Clear bilaterally - Derm Derm: Normal color, No rash - Neuro Neuro: Alert and oriented X 3 Eye Opening: Spontaneous Motor: Obeys Commands Verbal: Oriented GCS Score: 15 - Psych Psych: Normal mood, Normal affect Results - Vitals Vitals: Vital Signs - 24 hr 04/08/17 17:00 Temperature 36.8 C Heart Rate 89 Respiratory 17 Rate Blood Pressure 170/99 H O2 Saturation 99 Oxygen O2 Source Room air PD MEDICAL DECISION MAKING - ED course Complexity details: d/w patient ED course: OB asked from only an IV, no meds to lower BP and no blood work. Will admit. Departure - Departure Disposition: 66 [facility] DC/Xfer Clinical Impression: Hypertension affecting , Condition: Stable
[2017-04-08] MEDS ORDERED: SODIUM CHLORIDE FLUSH 0.9% 10 ML SYRINGE IVP PRN (17:54)
[2017-04-08] MEDS ORDERED: ACETAMINOPHEN 325 MG TABLET PO PRN (17:54)
[2017-04-08] MEDS ORDERED: ZOLPIDEM 5 MG TABLET PO PRN (17:54)
[2017-04-08] MEDS ORDERED: hydrALAZINE 10 MG TABLET PO SCH (19:00)
--- NOTE | 2017-04-08 20:56 | HISTORY & PHYSICAL EXAMINATION ---
DATE OF SERVICE: Physician: Idris Jose MD ADMISSION DIAGNOSES: 1. Uncontrolled hypertension despite medical treatment. 2. Headache and visual changes. 3. Fifteen week gestation. HISTORY OF PRESENT ILLNESS: The patient is a 31-year-old, , 3, para 2 woman who has been identified in clinic as having severe hypertension, and was admitted to observation by Dr. Lopez on Wednesday. During Internal medicine workup, Her antihypertensive medications were eventually titrated up for BP control with labetalol 400 mg b.i.d. and hydralazine 10 mg q.i.d. Her baseline blood pressures on that admission were 170s/110s. Renal artery ultrasound was normal. Creatinine clearance was normal. Echocardiogram found borderline cardiac enlargement with no valvular heart disease or wall motion abnormalities. When she was released her blood pressure was in the 130s /80s. The patient had been previously referred to Maternal Medicine Service but found it difficult to obtain an appointment. She did not return to work after release on Wednesday and was compliant with her medication schedule. Despite meds, her blood pressures were 170s/110s. She reports a generalized headache and associated visual changes including scintillation. 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 Right uni-lateral Blindness is treated by ophthalmology group. She cannot recall thrombophilia or antiphospholipid testing. She has no prior history of hypertension or cardiovascular disease. Approximately 2 months ago when she began workup with Dr. Flores for her blood pressure was 150/90s and she was begun on lisinopril which failed to control her blood pressure. In the meantime, she experienced IUD failure and unintentionally became . The IUD had been in place for 3 years and seemed to be effective. Earlier in this Dr. Christine Rose removed it in the office. There is a familial history of hypertension with her Grandmother suffered 5 CVAs. The patient is calm disposition and states that she has no history of anxiety disorder. During her last , she experienced elevated blood pressures at term roughly 147/mid 90s Without preeclampsia. ALLERGIES: NONE. MEDICATIONS: 1. Labetalol 400 b.i.d. 2. Hydralazine 10 mg q.i.d. 3. Mini dose aspirin FAMILY HISTORY: Father had hypertension and VA. Mother is healthy but maternal grandmother had hypertension and 5 strokes. Her sibling is currently normotensive. Children are healthy. 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 She is a nonsmoker but on rare occasion used marijuana. She has never used any injectable drugs or stimulants. She was a social drinker but currently has not consumed alcohol. Her life situation does have s tressors such as , remarriage and establishing a new business. REVIEW OF SYSTEMS: CONSTITUTIONAL: The patient reports no malaise, fevers, chills or systemic symptoms. HEENT: Right eye blindness is noted both before due to venous event; spots and flashes before her Left eye. RESPIRATORY: Negative. CARDIAC: Occasional bursts of rapid pulse. GASTROINTESTINAL: Negative. GENITOURINARY: - reference record. EXTREMITIES: No calf tenderness, cramping, etc. NEUROLOGIC: No focal sensation changes or weakness. DERMATOLOGIC: No rash. LYMPHATIC: No swollen lymph nodes. PHYSICAL EXAMINATION: GENERAL: Well groomed, pleasant, sitting in a chair, fluid speech, cooperative , alert and oriented. VITAL SIGNS: 177/112. HEENT: Neck supple. No thyromegaly. Ophthalmic scope Findings the right pupil fixed and dilated, Disc fuzzy possible mild papilledema. No JVD. Dentition in good repair. Moist mucous membranes. CHEST: Lungs clear to auscultation. No wheeze. HEART: Regular. Flow murmur of No gallop. ABDOMEN: Nondistended, soft. Bowel tones present. at pelvic brim. GENITOURINARY: A formal pelvic exam was not done because there were no complaints and it would add added stress and boost her blood pressure. EXTREMITIES: Warm, moves all 4 extremities well, no edema. NEUROLOGIC: Cranial nerves grossly intact; sensory function grossly intact. Moves all 4 extremities well. Patellar reflexes 2+ and equal. ADMISSION LABS: Pending. ASSESSMENT AND PLAN: The patient has difficult to control hypertension in the first trimester. Generally in the first trimester blood pressure is little changed or minor changes occur (plus or minus 5 points) due to a slight increase in blood volume. The worsening Hypertension probably predates the and the progression is becoming apparent with the close scrutiny of obstetric care. There are some echo changes in terms of cardiac size that shows that HTN has been present for a time, but is not necessarily chronic or longstanding. Valvular disease has been effectively ruled out. Her creatinine clearance and renal flow studies are normal, making renal disease less likely. She does report bouts of palpitations, sweating, which do not seem to be linked with anxiety attacks. Given the blood pressure levels and the need for diagnosis, search for pheochromocytoma would be prudent. Her venous event in the right eye is interesting and may have some link to her hypertension. Thrombophilia or Antithrombin lipid syndrome often underlies a worsening hypertensive course in . Unfortunately, the usual labs are not reliable for diagnosis in . The patient has already been started on mini dose aspirin. Guidance from Maternal Medicine would be useful. The patient has a headache and visual changes that could be from the hypertension alone or due to an underlying central nervous system problem. Central nervous system vascular malformation could be possible and link to the vascular event in her right eye. An MRI of the central nervous system is necessary. PLAN: 1. Admission and stabilization of blood pressure. We will probably have to increase her labetalol and hydralazine. A maximum dose of 2400 mg of labetalol is possible, depending on resultant side effects symptoms. I discussed this with Dr. Fuchs. 2. Diagnostic possibilities include pheochromocytoma, severe essential hypertension And [id number] syndrome. I have requested an internal medicine consultation to continue the workup of her underlying Hypertension diagnosis. MRI of the abdomen/adrenals has been ordered to search for possible adrenal hypertrophy and growth. Additionally, an MRI of the head was ordered to investigate the vasculature. 3. Long-term, the patient is at significant risk of stroke. carries an even greater risk of adverse event to both mother and fetus. This was an unintentional . I outlined possible complications of and continued hypertension to the patient in a nondirected fashion. It was stated that continuation of the may put her at risk for stroke, VA and . She has 2 children at home which may affect this decision. At the current time, the patient states that she does not want termination but will weigh all the factors present. Maternal Medicine consultation would be useful in helping her in this personal assessment. We will work in our office to expedite the patient's access to Maternal Medicine. 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 We will ask Corporate Development Associate to investigate what outreach and programs may be available to her. Attestation & Note to billing: Uncontrolled hypertension Is a very complex and dangerous condition with extreme risks to both mother and fetus. This diagnosis lies outside theUsual care. A total of 65 minutes was spent in [id number] interviewing, physical examination, coordinating care with internal medicine, Additional, 30 minutes was spent in education and counseling. Please Code and bill accordingly. TD: 04/08/2017 21:55 ANDREY
[2017-04-08] MEDS ORDERED: LABETALOL 100 MG TABLET PO SCH (21:00)
[2017-04-08] MEDS: SODIUM CHLORIDE FLUSH 0.9% 10 ML SYRINGE IVP SCH (21:28)
--- NOTE | 2017-04-08 21:39 | CONSULTATION NOTE ---
DATE OF SERVICE: 04/08/2017 Physician: Britt Tyson MD REASON FOR CONSULTATION: To evaluate and give opinion on hypertension. REQUESTING PHYSICIAN: Consultation was requested by the COMPUTER AIDED DESIGN DRAFTER specialist, Dr. Idris Jose BRIEF PRESENTATION, HISTORY OF PRESENT ILLNESS: The patient is a very pleasant , 31-year-old white female who is at 15 weeks' gestation. She had 2 prior pregnancies which she delivered at term with no complications. She does not have history of eclampsia, preeclampsia or gestational hypertension. Past medical history includes dyslipidemia, cardiac murmur, migraine headaches. She was diagnosed with hypertension in December 2016 on routine physical exam. At that time, she was started on lisinopril; however, when she found out she was in January 2017, on subsequent followup, lisinopril was discontinued and the patient was started on labetalol. During her visits, blood pressure was checked several times and was found elevated. Therefore, the patient had been closely followed during the past several weeks and in fact, she was admitted to [facility], was just discharged 2 days prior to current presentation. During the last hospital stay, the patient received a consultation from the hospitalist, Dr. Keri Olivo, and I refer the reader to Dr. Olivo' s note. In particular, it is documented that the patient had some outpatient workup, which included an unremarkable echocardiogram. She had an unremarkable EKG, and she also had a renal ultrasound which did not show renal artery stenosis. To the labetalol hydralazine was added and prior to discharge, the patient's blood pressure was between 120-130 systolic/about 80 diastolic. Subsequently, the patient was asked to check her blood pressure twice daily and report back if she had increased numbers. The patient reported back to OB specialist, Dr. Lopez, and based on her blood pressure being consistently elevated above 150 systolic and above 100 diastolic she was asked to come back to the hospital for further monitoring and workup. Upon presentation, the patient was admitted under Dr. Jose's service and we were asked to consult and assist with the management of hypertension. Reviewing the record, Dr. Jose already increased labetalol from 400 mg twice daily to 500 mg twice daily, and he ordered further workup for possible secondary hypertension, which included an MRI. Interviewing the patient, she reported having a 24-hour urine collection, which did have borderline protein and she was told about this result about a week ago. Regarding her symptoms, she reports having chronic migraines since her teenage years; however , most recently developing a different kind of headache. She mentions that this headache is different than prior migraine episodes and is associated with blurry vision. In addition, occasionally she has shortness of breath and chest tightness as well. The patient also reports a recent history of central retinal vein occlusion for which she sees an consumer education specialist. She describes she had angiography establishing the diagnosis. For this problem, she does not take any particular medication, just goes for close followup. She reports that she is practically blind in the right eye. Regarding additional issues, she denies history of lower extremity swelling. She does not report loss of consciousness or seizure-like activity. She, however, thinks that the headache she experiences recently is getting more frequent. The patient reports that she takes her outpatient medications regularly and she is compliant. PAST MEDICAL HISTORY: 1. Hypertension diagnosed in December 2016. So far, no secondary cause identified. 2. Dyslipidemia. 3. Cardiac murmur. 4. Migraine headaches. 5. CRVO/central retinal vein occlusion of the right eye. 6. Breast reduction surgery and history of oral surgery. 7. Normal echocardiogram recently. OUTPATIENT MEDICATIONS: Include 1. Labetalol 400 mg twice daily. 2. Hydralazine 10 mg 4 times daily. 3. Aspirin 81 mg daily. SOCIAL HISTORY: The patient does not smoke, does not use drugs. FAMILY HISTORY: Positive for miscarriages in the sister who had 2 miscarriages and a miscarriage in a grandmother as well. PRIMARY CARE PHYSICIAN: Johnathan Flores MD REVIEW OF SYSTEMS: Please see pertinent positives listed above in history of present illness. A 12-point review was completed and the patient did not report additional complaint. PHYSICAL EXAMINATION: VITAL SIGNS: Temperature of 36.8 Celsius, heart rate between 77 and 89, blood pressure 170/99, respiratory rate 17, oxygen saturation 99% on room air. GENERAL: The patient is a well-developed young female who was not in distress. HEENT: Oral mucosa moist. SKIN: Without jaundice or pallor. ABDOMEN: Bowel tones present. No tenderness. LUNGS: Clear to auscultation bilaterally without wheezes or crackles. LYMPHATIC: No lymphedema. CARDIOVASCULAR: S1, S2, systolic murmur. NEUROLOGIC: Alert, oriented, nonfocal. PSYCHIATRIC: Cooperative, pleasant to talk to. IMPRESSION: The patient is a 31-year-old female at 15 weeks , she presents with uncontrolled hypertension. The question is whether she is developing preeclampsia superimposed upon chronic hypertension or she has worsening gestational hypertension. For atypical preeclampsia, her symptoms are worrisome such as worsening headaches and blurry vision. Also, she did have protein in her urine per her knowledge on 24-hour urine collection , there was a borderline amount of protein. Although she does not fulfill the diagnosis for preeclampsia, again, her symptoms and worsening hypertension are worrisome for atypical presentation. RECOMMENDATIONS: I recommend rechecking liver function tests, uric acid, adding thyroid function tests and rechecking blood counts as well. I ordered repeat 24-hour urine collection and protein. I recommend blood pressure goals between 130 and 150 systolic and between 80 and 100 diastolic. Whether this patient has preeclampsia and further monitoring related to this issue will be deferred to the web content writer specialist. Regarding the current blood pressure management, labetalol and hydralazine would be ideal; an additional class of medication, which could safely be used would be a calcium channel oscar. In any case, there is significant room to go up on the dose of hydralazine and labetalol. Therefore, first I would increase the current medications labetalol and hydralazine, and would only consider a third agent if increased doses would not result in blood pressure reduction and optimal control. Regarding workup for secondary hypertension, it is being ordered by Dr. Jose. Further testing could be deferred to the outpatient setting. However, when I interviewed the patient, she did not provide any symptoms or red flags that would point to an unusual primary cause and secondary Hypertension. Thank you Dr. Jose for inviting us to participate in the care of this very pleasant patient. We will follow and be available as needed. TIME SPENT WITH THIS CONSULTATION: Sixty minutes. cc: Johnathan Flores TD: 04/08/2017 22:38 ANDREY
[2017-04-08] MEDS ORDERED: LABETALOL 20 MG/4 ML SYRINGE IVP ONE (21:50)
[2017-04-08] MEDS: ONDANSETRON 4 MG/2 ML VIAL IVP PRN (22:08)
[2017-04-08] MEDS: LABETALOL 100 MG TABLET PO SCH (23:37)
[2017-04-09] MEDS: hydrALAZINE 10 MG TABLET PO SCH ×5 (00:19→23:45)
[2017-04-09] MEDS: ASPIRIN EC 81 MG TABLET PO SCH ×3 (00:31→11:56)
[2017-04-09 01:13] LABS: BILIRUBIN,URINE NEGATIVE (NEGATIVE); GLUCOSE, URINE (UA) NEGATIVE (NEGATIVE); KETONES,URINE (UA) NEGATIVE (NEGATIVE); LEUKOCYTE ESTERASE, URINE SMALL (NEGATIVE); NITRITE,URINE NEGATIVE (NEGATIVE); OCCULT BLOOD,URINE NEGATIVE (NEGATIVE); PH,URINE 7.5 PH (5.0-7.5); PROTEIN,URINE NEGATIVE (NEGATIVE); UROBILINOGEN,URINE 0.2 (NORMAL) E.U./dL (NORMAL)
[2017-04-09 01:17] LABS: CLARITY,URINE CLEAR (CLEAR)
[2017-04-09 01:40] LABS: BACTERIA,URINE Few /HPF (None Seen); RBC,URINE 0-5 /HPF (0-5); SQUAMOUS EPITHELIAL CELL,UR MOD Squamous (<= Few)
[2017-04-09 06:19] LABS: BASOPHILS # (AUTO) 0.1 10^3/uL (0.0-0.1); BASOPHILS % (AUTO) 0.8 %; EOSINOPHILS # (AUTO) 0.1 10^3/uL (0.0-0.7); EOSINOPHILS % (AUTO) 1.1 %; HGB - HEMOGLOBIN 12.3 g/dL (12.0-16.0); LYMPHOCYTES # (AUTO) 1.5 10^3/uL (1.5-3.5); LYMPHOCYTES % (AUTO) 14.3 %; MEAN CORPUSCULAR HEMOGLOBIN 30.1 pg (27.0-31.0); MEAN CORPUSCULAR HGB CONC 34.2 g/dL (32.0-36.0); MEAN CORPUSCULAR VOLUME 88.1 fL (81.0-99.0); MEAN PLATELET VOLUME 6.3 fL (7.9-10.8); MONOCYTES # (AUTO) 0.8 10^3/uL (0.0-1.0); MONOCYTES % (AUTO) 7.5 %; NEUTROPHILS # (AUTO) 7.8 10^3/uL (1.5-6.6); NEUTROPHILS % (AUTO) 76.3 %; PLT - PLATELET COUNT 326 10^3/uL (130-450); RED CELL DISTRIBUTION WIDTH 16.3 % (12.0-15.0); WHITE BLOOD COUNT 10.2 x10^3/uL (4.8-10.8)
[2017-04-09 06:29] LABS: ALBUMIN 3.6 g/dL (3.2-5.5); ALBUMIN/GLOBULIN RATIO 1.3 (1.0-2.2); ALKALINE PHOSPHATASE 31 IU/L (42-121); ALT ALANINE AMINOTRANSFERASE 18 IU/L (10-60); AST ASPARTATE AMINOTRANSFERASE 20 IU/L (10-42); BILIRUBIN,TOTAL 0.5 mg/dL (0.2-1.0); BUN - BLOOD UREA NITROGEN 8 mg/dL (6-20); CALCIUM 8.7 mg/dL (8.5-10.3); CARBON DIOXIDE - CO2 22 mmol/L (21-32); CHLORIDE 105 mmol/L (101-111); CREATININE 0.5 mg/dL (0.4-1.0); GFR - MDRD 142 (>89); GLUCOSE 95 mg/dL (70-100); SODIUM 135 mmol/L (135-145); TOTAL PROTEIN 6.3 g/dL (6.7-8.2)
[2017-04-09] MEDS: LABETALOL 100 MG TABLET PO SCH ×3 (06:31→22:21)
[2017-04-09] MEDS: SODIUM CHLORIDE FLUSH 0.9% 10 ML SYRINGE IVP SCH ×3 (06:32→19:02)
[2017-04-09 06:42] LABS: MUDS CUTOFF CONCENTRATIONS CUTOFF CONC BELOW:
[2017-04-09 06:53] LABS: AMPHETAMINE SCREEN,URINE NEGATIVE (NEGATIVE); BENZODIAZEPINES SCREEN, URINE NEGATIVE (NEGATIVE); COCAINE SCREEN URINE NEGATIVE (NEGATIVE); METHADONE SCREEN, URINE NEGATIVE (NEGATIVE); METHAMPHETAMINES SCREEN, URINE NEGATIVE (NEGATIVE); OPIATE SCREEN, URINE NEGATIVE (NEGATIVE); OXYCODONE SCREEN, URINE NEGATIVE (NEGATIVE); PROPOXYPHENE SCREEN, URINE NEGATIVE (NEGATIVE); TRICYCLIC ANTIDEPRESSANT,URINE NEGATIVE (NEGATIVE)
[2017-04-09 07:10] LABS: THYROID STIMULATING HORMONE 0.69 uIU/mL (0.34-5.60)
[2017-04-09 07:12] LABS: FREE T4 (FREE THYROXINE) 0.77 ng/dL (0.58-1.64)
--- NOTE | 2017-04-09 09:53 | MRI Preliminary Report ---
Exam: MRI BRAIN W/O IMPRESSION: 1. Normal MRI appearance of the brain. 2. Probable abnormal asymmetric T2 hyperintensity of the right intraorbital optic nerve, this may be secondary to edema or myelomalacia. Tumor is less likely. 3. 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 [facility] SITE ID: [id number]
--- NOTE | 2017-04-09 10:03 | MRI Report ---
EXAM: MRI BRAIN WITHOUT CONTRAST EXAM DATE: 04/09/2017 09:31 AM. CLINICAL HISTORY: Visual changes. Headache. Right eye blindness. Left eye blurred vision. COMPARISON: None. TECHNIQUE: Multiplanar, multisequence T1-weighted and fluid-sensitive MR sequences of the brain were performed. Sequences optimized for routine evaluation. Other: None. IV Contrast: None. FINDINGS: Brain Volume: Normal for age. Parenchyma/Dura: No mass, acute infarct or hemorrhage. No white matter lesions identified. Ventricles/Cisterns: No hydrocephalus. No abnormal extra-axial fluid collection or hemorrhage. Orbits: Probable subtle asymmetric increased T2 signal in the region of the right optic nerve. Unrema rkable appearance of the optic chiasm. Otherwise unremarkable and symmetric-appearing orbits. Sella Turcica: The maximum height of the pituitary gland is 5 mm. Unremarkable midline appearance of the infundibulum. The central pituitary gland is dominated by an ovoid sharply demarcated fluid signa l cyst or cystlike structure measuring 5 mm AP, 9 mm transverse, and 4 mm craniocaudal. IAC: Grossly symmetric and unremarkable allowing for limited noncontrast imaging technique. Vasculature: Normal signal flow void is seen in the major arterial structures at the skull base. Sinuses: No acute appearing sinus disease. Bones: No focal pathologic appearing marrow signal changes. Other: None. IMPRESSION: 1. Normal MRI appearance of the brain. 2. Probable abnormal asymmetric T2 hyperintensity of the right intraorbital optic nerve, this may be secondary to edema or myelomalacia. Tumor is less likely. 3. 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 [facility] Referring Provider Line: [phone] SITE ID: [id number]
--- NOTE | 2017-04-09 10:41 | PROVIDER PROGRESS NOTE ---
Subjective - Prog Note Date Prog Note Date: 04/09/17 - Subjective Pt reports feeling: Improved Subjective: pt's HTN is a good controlled. 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 Current Medications - Current Medications Current Medications: Active Medications Acetaminophen (Tylenol) 650 mg PO Q4HR PRN PRN Reason: Pain 1 to 4 Last Admin: 04/09/17 08:08 Dose: 650 mg Aspirin (Ecotrin) 81 mg PO DAILY [facility] Last Admin: 04/09/17 11:56 Dose: 81 mg Hydralazine HCl (Apresoline) 20 mg PO Q6HR [facility] Last Admin: 04/09/17 11:39 Dose: 20 mg Labetalol HCl (Trandate) 400 mg PO TID [facility] Last Admin: 04/09/17 14:23 Dose: 400 mg Ondansetron HCl (Zofran Inj) 4 mg IVP Q6HR PRN PRN Reason: Nausea / Vomiting Last Admin: 04/08/17 22:08 Dose: 4 mg Polyethylene Glycol (Miralax) 17 gm PO DAILY [facility] Last Admin: 04/09/17 11:03 Dose: Not Given Multivit/Folic Acid/Iron (Trinatal Rx 1) 1 tab PO DAILYWM [facility] Last Admin: 04/09/17 11:56 Dose: 1 tab Sodium Chloride (Normal Saline Flush 0.9%) 10 ml IVP PRN PRN PRN Reason: NEEDED PER PROVIDER ORDERS Last Admin: 04/08/17 22:08 Dose: 10 ml Sodium Chloride (Normal Saline Flush 0.9%) 10 ml IVP Q8HR [facility] Last Admin: 04/09/17 14:25 Dose: Not Given Zolpidem Tartrate (Ambien) 10 mg PO QPM PRN PRN Reason: Insomnia Labetalol [Trandate] 400 mg PO TID 04/05/17 Aspirin 81 mg PO DAILY 04/08/17 Hydralazine HCl 20 mg PO Q6HR 04/08/17 Objective - Vital Signs/Intake & Output Reviewed Vital Signs: Yes Vital Signs: Vital Signs x48h Temp Pulse Resp BP Pulse Ox 04/09/17 10:06 142/81 H 04/09/17 07:57 36.7 C 79 139/76 H 98 01/26/18 06:13 36.7 C 75 18 140/76 H 98 Intake & Output: Intake & Output 04/06/17 04/07/17 04/08/17 04/09/17 23:59 23:59 23:59 23:59 Intake Total 1000 0 Output Total 900 Balance 1000 -900 - Objective General Appearance: positive: No acute distress, Alert. negative: Lethargic Eyes Bilateral: positive: Normal inspection, PERRL, No lid inflammation, Conjunctivae nml ENT: positive: ENT inspection nml, Pharynx nml, No signs of dehydration. negative: Purulent nasal drainage, Pharyngeal erythema, Oral lesions Neck: positive: Nml inspection, Thyroid nml, No JVD, Trachea midline. negative : Thyromegaly, Lymphadenopathy (R), Lymphadenopathy (L), Stiff neck, Carotid bruit, Swelling/bruising, Tracheal deviation Respiratory: positive: Chest non-tender, No respiratory distress, Breath sounds nml. negative: Wheezes, Rales, Rhonchi Cardiovascular: positive: Regular rate & rhythm, No murmur, No gallop. negative : Irregularly irregular, Extrasystoles, Tachycardia, Bradycardia, Systolic murmur, Diastolic murmur Peripheral Pulses: 2+ Radial (R), 2+ Radial (L), 2+ Dorsalis pedis (R), 2+ Dorsalis pedis (L) Abdomen: positive: Non-tender, No organomegaly, Nml bowel sounds, No distention. negative: Tenderness, Guarding, Rebound Back: positive: Nml inspection. negative: CVA tenderness (R), CVA tenderness (L ) Skin: positive: Color nml, No rash, Warm, Dry. negative: Cyanosis, Diaphoresis , Pallor Extremities: positive: Non-tender, Full ROM, Nml appearance. negative: Calf tenderness, Joint swelling, Dixon's sign/cords Neurologic/Psychiatric: positive: Oriented x3, Motor nml, Sensation nml, Mood/ affect nml. negative: Weakness, Sensory loss, Facial droop, Slurred/abnml speech, Depressed mood/affect - Lab Results Fish Bones: 04/09/17 06:06 04/09/17 06:06 Other Labs: Lab Results x24hrs 04/09/17 04/09/17 04/09/17 Range/Units 06:06 06:06 06:06 WBC (4.8-10.8) x10^3/uL RBC (4.20-5.40) 10^6/uL Hgb (12.0-16.0) g/dL Hct (37.0-47.0) % MCV (81.0-99.0) fL MCH (27.0-31.0) pg MCHC (32.0-36.0) g/dL RDW (12.0-15.0) % Plt Count (130-450) 10^3/uL MPV (7.9-10.8) fL Neut # (1.5-6.6) 10^3/uL Lymph # (1.5-3.5) 10^3/uL [place] # (0.0-1.0) 10^3/uL Eos # (0.0-0.7) 10^3/uL Baso # (0.0-0.1) 10^3/uL Absolute Nucleated RBC x10^3/uL Nucleated RBC % /100WBC ESR 7 (0-20) mm/Hr Sodium (135-145) mmol/L Potassium (3.5-5.0) mmol/L Chloride (101-111) mmol/L Carbon Dioxide (21-32) mmol/L Anion Gap (6-13) BUN (6-20) mg/dL Creatinine (0.4-1.0) mg/dL Estimated GFR (MDRD) (>89) Glucose (70-100) mg/dL Uric Acid 2.8 (2.6-7.2) mg/dL Calcium (8.5-10.3) mg/dL Ionized Calcium Total Bilirubin (0.2-1.0) mg/dL AST (10-42) IU/L ALT (10-60) IU/L Alkaline Phosphatase (42-121) IU/L Total Protein (6.7-8.2) g/dL Albumin (3.2-5.5) g/dL Globulin (2.1-4.2) g/dL Albumin/Globulin Ratio (1.0-2.2) TSH 0.69 (0.34-5.60) uIU/mL Free T4 0.77 (0.58-1.64) ng/dL Urine Color Urine Clarity (CLEAR) Urine pH (5.0-7.5) PH Ur Specific [place] (1.002-1.030) Urine Protein (NEGATIVE) mg/dL Urine Glucose (UA) (NEGATIVE) mg/dL Urine Ketones (NEGATIVE) mg/dL Urine Occult Blood (NEGATIVE) Urine Nitrite (NEGATIVE) Urine Bilirubin (NEGATIVE) Urine Urobilinogen (NORMAL) E.U./dL Ur Leukocyte Esterase (NEGATIVE) Urine RBC (0-5) /HPF Urine WBC (0-5) /HPF Ur Squamous Epith Cells (<= Few) Urine Bacteria (None Seen) /HPF Ur Microscopic Review Urine Culture Comments Urine Opiates Screen (NEGATIVE) Ur Oxycodone Screen (NEGATIVE) Urine Methadone Screen (NEGATIVE) Ur Propoxyphene Screen (NEGATIVE) Ur Barbiturates Screen (NEGATIVE) Ur Tricyclics Screen (NEGATIVE) Ur Phencyclidine Scrn (NEGATIVE) Ur Amphetamine Screen (NEGATIVE) U Methamphetamines Scrn (NEGATIVE) U Benzodiazepines Scrn (NEGATIVE) Urine Cocaine Screen (NEGATIVE) U Cannabinoids Screen (NEGATIVE) 04/09/17 04/09/17 04/09/17 Range/Units 06:06 06:06 00:15 WBC 10.2 (4.8-10.8) x10^3/uL RBC 4.10 L (4.20-5.40) 10^6/uL Hgb 12.3 (12.0-16.0) g/dL Hct 36.1 L (37.0-47.0) % MCV 88.1 (81.0-99.0) fL MCH 30.1 (27.0-31.0) pg MCHC 34.2 (32.0-36.0) g/dL RDW 16.3 H (12.0-15.0) % Plt Count 326 (130-450) 10^3/uL MPV 6.3 L (7.9-10.8) fL Neut # 7.8 H (1.5-6.6) 10^3/uL Lymph # 1.5 (1.5-3.5) 10^3/uL [place] # 0.8 (0.0-1.0) 10^3/uL Eos # 0.1 (0.0-0.7) 10^3/uL Baso # 0.1 (0.0-0.1) 10^3/uL Absolute Nucleated RBC 0.00 x10^3/uL Nucleated RBC % 0.0 /100WBC ESR (0-20) mm/Hr Sodium 135 (135-145) mmol/L Potassium 3.9 (3.5-5.0) mmol/L Chloride 105 (101-111) mmol/L Carbon Dioxide 22 (21-32) mmol/L Anion Gap 8.0 (6-13) BUN 8 (6-20) mg/dL Creatinine 0.5 (0.4-1.0) mg/dL Estimated GFR (MDRD) 142 (>89) Glucose 95 (70-100) mg/dL Uric Acid (2.6-7.2) mg/dL Calcium 8.7 (8.5-10.3) mg/dL Ionized Calcium NO Total Bilirubin 0.5 (0.2-1.0) mg/dL AST 20 (10-42) IU/L ALT 18 (10-60) IU/L Alkaline Phosphatase 31 L (42-121) IU/L Total Protein 6.3 L (6.7-8.2) g/dL Albumin 3.6 (3.2-5.5) g/dL Globulin 2.7 (2.1-4.2) g/dL Albumin/Globulin Ratio 1.3 (1.0-2.2) TSH (0.34-5.60) uIU/mL Free T4 (0.58-1.64) ng/dL Urine Color Urine Clarity (CLEAR) Urine pH (5.0-7.5) PH Ur Specific [place] (1.002-1.030) Urine Protein (NEGATIVE) mg/dL Urine Glucose (UA) (NEGATIVE) mg/dL Urine Ketones (NEGATIVE) mg/dL Urine Occult Blood (NEGATIVE) Urine Nitrite (NEGATIVE) Urine Bilirubin (NEGATIVE) Urine Urobilinogen (NORMAL) E.U./dL Ur Leukocyte Esterase (NEGATIVE) Urine RBC (0-5) /HPF Urine WBC (0-5) /HPF Ur Squamous Epith Cells (<= Few) Urine Bacteria (None Seen) /HPF Ur Microscopic Review Urine Culture Comments Urine Opiates Screen NEGATIVE (NEGATIVE) Ur Oxycodone Screen NEGATIVE (NEGATIVE) Urine Methadone Screen NEGATIVE (NEGATIVE) Ur Propoxyphene Screen NEGATIVE (NEGATIVE) Ur Barbiturates Screen NEGATIVE (NEGATIVE) Ur Tricyclics Screen NEGATIVE (NEGATIVE) Ur Phencyclidine Scrn NEGATIVE (NEGATIVE) Ur Amphetamine Screen NEGATIVE (NEGATIVE) U Methamphetamines Scrn NEGATIVE (NEGATIVE) U Benzodiazepines Scrn NEGATIVE (NEGATIVE) Urine Cocaine Screen NEGATIVE (NEGATIVE) U Cannabinoids Screen NEGATIVE (NEGATIVE) 04/09/17 Range/Units 00:15 WBC (4.8-10.8) x10^3/uL RBC (4.20-5.40) 10^6/uL Hgb (12.0-16.0) g/dL Hct (37.0-47.0) % MCV (81.0-99.0) fL MCH (27.0-31.0) pg MCHC (32.0-36.0) g/dL RDW (12.0-15.0) % Plt Count (130-450) 10^3/uL MPV (7.9-10.8) fL Neut # (1.5-6.6) 10^3/uL Lymph # (1.5-3.5) 10^3/uL [place] # (0.0-1.0) 10^3/uL Eos # (0.0-0.7) 10^3/uL Baso # (0.0-0.1) 10^3/uL Absolute Nucleated RBC x10^3/uL Nucleated RBC % /100WBC ESR (0-20) mm/Hr Sodium (135-145) mmol/L Potassium (3.5-5.0) mmol/L Chloride (101-111) mmol/L Carbon Dioxide (21-32) mmol/L Anion Gap (6-13) BUN (6-20) mg/dL Creatinine (0.4-1.0) mg/dL Estimated GFR (MDRD) (>89) Glucose (70-100) mg/dL Uric Acid (2.6-7.2) mg/dL Calcium (8.5-10.3) mg/dL Ionized Calcium Total Bilirubin (0.2-1.0) mg/dL AST (10-42) IU/L ALT (10-60) IU/L Alkaline Phosphatase (42-121) IU/L Total Protein (6.7-8.2) g/dL Albumin (3.2-5.5) g/dL Globulin (2.1-4.2) g/dL Albumin/Globulin Ratio (1.0-2.2) TSH (0.34-5.60) uIU/mL Free T4 (0.58-1.64) ng/dL Urine Color YELLOW Urine Clarity CLEAR (CLEAR) Urine pH 7.5 (5.0-7.5) PH Ur Specific [place] 1.015 (1.002-1.030) Urine Protein NEGATIVE (NEGATIVE) mg/dL Urine Glucose (UA) NEGATIVE (NEGATIVE) mg/dL Urine Ketones NEGATIVE (NEGATIVE) mg/dL Urine Occult Blood NEGATIVE (NEGATIVE) Urine Nitrite NEGATIVE (NEGATIVE) Urine Bilirubin NEGATIVE (NEGATIVE) Urine Urobilinogen 0.2 (NORMAL) (NORMAL) E.U./dL Ur Leukocyte Esterase SMALL H (NEGATIVE) Urine RBC 0-5 (0-5) /HPF Urine WBC 0-3 (0-5) /HPF Ur Squamous Epith Cells MOD Squamous H (<= Few) Urine Bacteria Few (None Seen) /HPF Ur Microscopic Review INDICATED Urine Culture Comments NOT INDICATED Urine Opiates Screen (NEGATIVE) Ur Oxycodone Screen (NEGATIVE) Urine Methadone Screen (NEGATIVE) Ur Propoxyphene Screen (NEGATIVE) Ur Barbiturates Screen (NEGATIVE) Ur Tricyclics Screen (NEGATIVE) Ur Phencyclidine Scrn (NEGATIVE) Ur Amphetamine Screen (NEGATIVE) U Methamphetamines Scrn (NEGATIVE) U Benzodiazepines Scrn (NEGATIVE) Urine Cocaine Screen (NEGATIVE) U Cannabinoids Screen (NEGATIVE) Assessment/Plan - Problem List (1) HTN (hypertension) Impression: it seems pt's BP is in the good control now.The last BP is 142/83 continue Hydralazine, labetalol as schedule. vital monitor, follow up closely, and adjust meds as needed. order lipid panel test Pt was without preeclampsia on the last with elevated BP. Pt's current liver enzyme and Plt are the normal arrange, urinary protein in UA stick was negative, pt is about first 15 weeks . The physical exam does not reveals jaundice, or pallor, edema on facial or lower extremities. All these tests encourage, pt may not have preeclampsia now. Thank Dr. Jose let me participate the care of this patient.
[2017-04-09] MEDS: POLYETHYLENE GLYCOL 3350 17 GM PACKET PO SCH ×2 (11:03→19:00)
[2017-04-09] MEDS: PRENATAL VITAMIN TABLET PO SCH ×2 (11:03→11:56)
--- NOTE | 2017-04-09 12:00 | MRI Report ---
EXAM: MR ABDOMEN WITHOUT CONTRAST (MR ADRENALS) EXAM DATE: 04/09/2017 11:36 AM. CLINICAL HISTORY: Uncontrolled HTN. 11 weeks . COMPARISON: None. TECHNIQUE: Multiplanar breath-hold T1 and T2 sequences obtained through the adrenals and abdomen on a n MR scanner. Thin-section, in-phase and [id number]-[id number] sequence obtained through the adrenal glands. N o intravenous contrast given. FINDINGS: Lung Bases: Unremarkable. Liver: The liver has normal size, morphology and signal. No evidence of mass or biliary dilatation. Gallbladder: The gallbladder is partially distended and appears normal with no wall thickening or sto ne. Pancreas: The pancreas appears normal with no mass or ductal dilatation. Spleen: The spleen appears normal. Kidneys: The kidneys appear normal with no mass or hydronephrosis. There are no cysts in the kidneys. Adrenals: Normal-appearing bilateral adrenal glands. No mass/nodule. Bowel: The small bowel and colon appear normal with no inflammation or obstruction. Retroperitoneum: The retroperitoneal structures appear normal with no mass or lymphadenopathy. Althou gh axial images were limited to adrenal region, coronal series extended through aortic bifurcation. N o adjacent mass demonstrated. Gravid uterus partially imaged. IMPRESSION: 1. Normal adrenal glands. [facility] Referring Provider Line: [phone] SITE ID: [id number]
[2017-04-09] MEDS: ONDANSETRON 4 MG/2 ML VIAL IVP PRN (18:59)
--- NOTE | 2017-04-09 20:59 | PROVIDER PROGRESS NOTE ---
Subjective - Prog Note Date Prog Note Date: 04/09/17 Prog Note Time: 08:45 - Subjective Pt reports feeling: Improved (Mikael NEAL. Concerned about her buisness) Objective - Vital Signs/Intake & Output Reviewed Vital Signs: Yes Vital Signs: Vital Signs x48h Temp Pulse Resp BP Pulse Ox 04/09/17 19:48 83 17 123/64 97 04/09/17 15:53 36.8 C 81 16 142/83 H 99 04/09/17 13:00 36.7 C 98 20 154/88 H 99 Intake & Output: Intake & Output 04/06/17 04/07/17 04/08/17 04/09/17 23:59 23:59 23:59 23:59 Intake Total 1000 1200 Output Total 900 Balance 1000 300 - Objective General Appearance: positive: No acute distress, Alert Respiratory: positive: Chest non-tender, No respiratory distress, Breath sounds nml Cardiovascular: positive: Regular rate & rhythm, No murmur Abdomen: positive: Non-tender, No organomegaly Extremities: negative: Calf tenderness, Dixon's sign/cords Neurologic/Psychiatric: positive: Oriented x3 - Lab Results Fish Bones: 04/09/17 06:06 04/09/17 06:06 Other Labs: Lab Results x24hrs 04/09/17 04/09/17 04/09/17 Range/Units 06:06 06:06 06:06 WBC (4.8-10.8) x10^3/uL RBC (4.20-5.40) 10^6/uL Hgb (12.0-16.0) g/dL Hct (37.0-47.0) % MCV (81.0-99.0) fL MCH (27.0-31.0) pg MCHC (32.0-36.0) g/dL RDW (12.0-15.0) % Plt Count (130-450) 10^3/uL MPV (7.9-10.8) fL Neut # (1.5-6.6) 10^3/uL Lymph # (1.5-3.5) 10^3/uL [place] # (0.0-1.0) 10^3/uL Eos # (0.0-0.7) 10^3/uL Baso # (0.0-0.1) 10^3/uL Absolute Nucleated RBC x10^3/uL Nucleated RBC % /100WBC ESR 7 (0-20) mm/Hr Sodium (135-145) mmol/L Potassium (3.5-5.0) mmol/L Chloride (101-111) mmol/L Carbon Dioxide (21-32) mmol/L Anion Gap (6-13) BUN (6-20) mg/dL Creatinine (0.4-1.0) mg/dL Estimated GFR (MDRD) (>89) Glucose (70-100) mg/dL Uric Acid 2.8 (2.6-7.2) mg/dL Calcium (8.5-10.3) mg/dL Ionized Calcium Total Bilirubin (0.2-1.0) mg/dL AST (10-42) IU/L ALT (10-60) IU/L Alkaline Phosphatase (42-121) IU/L Total Protein (6.7-8.2) g/dL Albumin (3.2-5.5) g/dL Globulin (2.1-4.2) g/dL Albumin/Globulin Ratio (1.0-2.2) TSH 0.69 (0.34-5.60) uIU/mL Free T4 0.77 (0.58-1.64) ng/dL Urine Color Urine Clarity (CLEAR) Urine pH (5.0-7.5) PH Ur Specific [place] (1.002-1.030) Urine Protein (NEGATIVE) mg/dL Urine Glucose (UA) (NEGATIVE) mg/dL Urine Ketones (NEGATIVE) mg/dL Urine Occult Blood (NEGATIVE) Urine Nitrite (NEGATIVE) Urine Bilirubin (NEGATIVE) Urine Urobilinogen (NORMAL) E.U./dL Ur Leukocyte Esterase (NEGATIVE) Urine RBC (0-5) /HPF Urine WBC (0-5) /HPF Ur Squamous Epith Cells (<= Few) Urine Bacteria (None Seen) /HPF Ur Microscopic Review Urine Culture Comments Urine Opiates Screen (NEGATIVE) Ur Oxycodone Screen (NEGATIVE) Urine Methadone Screen (NEGATIVE) Ur Propoxyphene Screen (NEGATIVE) Ur Barbiturates Screen (NEGATIVE) Ur Tricyclics Screen (NEGATIVE) Ur Phencyclidine Scrn (NEGATIVE) Ur Amphetamine Screen (NEGATIVE) U Methamphetamines Scrn (NEGATIVE) U Benzodiazepines Scrn (NEGATIVE) Urine Cocaine Screen (NEGATIVE) U Cannabinoids Screen (NEGATIVE) 04/09/17 04/09/17 04/09/17 Range/Units 06:06 06:06 00:15 WBC 10.2 (4.8-10.8) x10^3/uL RBC 4.10 L (4.20-5.40) 10^6/uL Hgb 12.3 (12.0-16.0) g/dL Hct 36.1 L (37.0-47.0) % MCV 88.1 (81.0-99.0) fL MCH 30.1 (27.0-31.0) pg MCHC 34.2 (32.0-36.0) g/dL RDW 16.3 H (12.0-15.0) % Plt Count 326 (130-450) 10^3/uL MPV 6.3 L (7.9-10.8) fL Neut # 7.8 H (1.5-6.6) 10^3/uL Lymph # 1.5 (1.5-3.5) 10^3/uL [place] # 0.8 (0.0-1.0) 10^3/uL Eos # 0.1 (0.0-0.7) 10^3/uL Baso # 0.1 (0.0-0.1) 10^3/uL Absolute Nucleated RBC 0.00 x10^3/uL Nucleated RBC % 0.0 /100WBC ESR (0-20) mm/Hr Sodium 135 (135-145) mmol/L Potassium 3.9 (3.5-5.0) mmol/L Chloride 105 (101-111) mmol/L Carbon Dioxide 22 (21-32) mmol/L Anion Gap 8.0 (6-13) BUN 8 (6-20) mg/dL Creatinine 0.5 (0.4-1.0) mg/dL Estimated GFR (MDRD) 142 (>89) Glucose 95 (70-100) mg/dL Uric Acid (2.6-7.2) mg/dL Calcium 8.7 (8.5-10.3) mg/dL Ionized Calcium NO Total Bilirubin 0.5 (0.2-1.0) mg/dL AST 20 (10-42) IU/L ALT 18 (10-60) IU/L Alkaline Phosphatase 31 L (42-121) IU/L Total Protein 6.3 L (6.7-8.2) g/dL Albumin 3.6 (3.2-5.5) g/dL Globulin 2.7 (2.1-4.2) g/dL Albumin/Globulin Ratio 1.3 (1.0-2.2) TSH (0.34-5.60) uIU/mL Free T4 (0.58-1.64) ng/dL Urine Color Urine Clarity (CLEAR) Urine pH (5.0-7.5) PH Ur Specific [place] (1.002-1.030) Urine Protein (NEGATIVE) mg/dL Urine Glucose (UA) (NEGATIVE) mg/dL Urine Ketones (NEGATIVE) mg/dL Urine Occult Blood (NEGATIVE) Urine Nitrite (NEGATIVE) Urine Bilirubin (NEGATIVE) Urine Urobilinogen (NORMAL) E.U./dL Ur Leukocyte Esterase (NEGATIVE) Urine RBC (0-5) /HPF Urine WBC (0-5) /HPF Ur Squamous Epith Cells (<= Few) Urine Bacteria (None Seen) /HPF Ur Microscopic Review Urine Culture Comments Urine Opiates Screen NEGATIVE (NEGATIVE) Ur Oxycodone Screen NEGATIVE (NEGATIVE) Urine Methadone Screen NEGATIVE (NEGATIVE) Ur Propoxyphene Screen NEGATIVE (NEGATIVE) Ur Barbiturates Screen NEGATIVE (NEGATIVE) Ur Tricyclics Screen NEGATIVE (NEGATIVE) Ur Phencyclidine Scrn NEGATIVE (NEGATIVE) Ur Amphetamine Screen NEGATIVE (NEGATIVE) U Methamphetamines Scrn NEGATIVE (NEGATIVE) U Benzodiazepines Scrn NEGATIVE (NEGATIVE) Urine Cocaine Screen NEGATIVE (NEGATIVE) U Cannabinoids Screen NEGATIVE (NEGATIVE) 04/09/17 Range/Units 00:15 WBC (4.8-10.8) x10^3/uL RBC (4.20-5.40) 10^6/uL Hgb (12.0-16.0) g/dL Hct (37.0-47.0) % MCV (81.0-99.0) fL MCH (27.0-31.0) pg MCHC (32.0-36.0) g/dL RDW (12.0-15.0) % Plt Count (130-450) 10^3/uL MPV (7.9-10.8) fL Neut # (1.5-6.6) 10^3/uL Lymph # (1.5-3.5) 10^3/uL [place] # (0.0-1.0) 10^3/uL Eos # (0.0-0.7) 10^3/uL Baso # (0.0-0.1) 10^3/uL Absolute Nucleated RBC x10^3/uL Nucleated RBC % /100WBC ESR (0-20) mm/Hr Sodium (135-145) mmol/L Potassium (3.5-5.0) mmol/L Chloride (101-111) mmol/L Carbon Dioxide (21-32) mmol/L Anion Gap (6-13) BUN (6-20) mg/dL Creatinine (0.4-1.0) mg/dL Estimated GFR (MDRD) (>89) Glucose (70-100) mg/dL Uric Acid (2.6-7.2) mg/dL Calcium (8.5-10.3) mg/dL Ionized Calcium Total Bilirubin (0.2-1.0) mg/dL AST (10-42) IU/L ALT (10-60) IU/L Alkaline Phosphatase (42-121) IU/L Total Protein (6.7-8.2) g/dL Albumin (3.2-5.5) g/dL Globulin (2.1-4.2) g/dL Albumin/Globulin Ratio (1.0-2.2) TSH (0.34-5.60) uIU/mL Free T4 (0.58-1.64) ng/dL Urine Color YELLOW Urine Clarity CLEAR (CLEAR) Urine pH 7.5 (5.0-7.5) PH Ur Specific [place] 1.015 (1.002-1.030) Urine Protein NEGATIVE (NEGATIVE) mg/dL Urine Glucose (UA) NEGATIVE (NEGATIVE) mg/dL Urine Ketones NEGATIVE (NEGATIVE) mg/dL Urine Occult Blood NEGATIVE (NEGATIVE) Urine Nitrite NEGATIVE (NEGATIVE) Urine Bilirubin NEGATIVE (NEGATIVE) Urine Urobilinogen 0.2 (NORMAL) (NORMAL) E.U./dL Ur Leukocyte Esterase SMALL H (NEGATIVE) Urine RBC 0-5 (0-5) /HPF Urine WBC 0-3 (0-5) /HPF Ur Squamous Epith Cells MOD Squamous H (<= Few) Urine Bacteria Few (None Seen) /HPF Ur Microscopic Review INDICATED Urine Culture Comments NOT INDICATED Urine Opiates Screen (NEGATIVE) Ur Oxycodone Screen (NEGATIVE) Urine Methadone Screen (NEGATIVE) Ur Propoxyphene Screen (NEGATIVE) Ur Barbiturates Screen (NEGATIVE) Ur Tricyclics Screen (NEGATIVE) Ur Phencyclidine Scrn (NEGATIVE) Ur Amphetamine Screen (NEGATIVE) U Methamphetamines Scrn (NEGATIVE) U Benzodiazepines Scrn (NEGATIVE) Urine Cocaine Screen (NEGATIVE) U Cannabinoids Screen (NEGATIVE) - Diagnostic Imaging Diagnostic Imaging Results: positive: Final report reviewed Diagnostic Imaging Comments: MRI no Pheochrmocytoms seen evidence of right venous thrombosis Assessment/Plan - Problem List (1) Hypertension affecting Impression: Improving with labetolol 400 mg bid adn apresoline 20 mg qid. Plan discharg in the AM. Appt with [facility] Wednesday reinforced the improtance of this visit. possible CVA. Hypertensive cirsis.
[2017-04-10] MEDS: ONDANSETRON 4 MG/2 ML VIAL IVP PRN (06:15)
[2017-04-10] MEDS: SODIUM CHLORIDE FLUSH 0.9% 10 ML SYRINGE IVP SCH (06:15)
[2017-04-10] MEDS: LABETALOL 100 MG TABLET PO SCH (06:16)
[2017-04-10] MEDS: hydrALAZINE 10 MG TABLET PO SCH (06:19)
[2017-04-10 06:45] LABS: BASOPHILS % (AUTO) 0.2 %; EOSINOPHILS # (AUTO) 0.1 10^3/uL (0.0-0.7); EOSINOPHILS % (AUTO) 1.2 %; HGB - HEMOGLOBIN 12.3 g/dL (12.0-16.0); LYMPHOCYTES # (AUTO) 1.7 10^3/uL (1.5-3.5); LYMPHOCYTES % (AUTO) 17.4 %; MEAN CORPUSCULAR HEMOGLOBIN 30.2 pg (27.0-31.0); MEAN CORPUSCULAR HGB CONC 33.2 g/dL (32.0-36.0); MEAN PLATELET VOLUME 6.6 fL (7.9-10.8); MONOCYTES # (AUTO) 0.9 10^3/uL (0.0-1.0); MONOCYTES % (AUTO) 9.2 %; NEUTROPHILS # (AUTO) 7.1 10^3/uL (1.5-6.6); PLT - PLATELET COUNT 323 10^3/uL (130-450); RED BLOOD COUNT 4.06 10^6/uL (4.20-5.40); RED CELL DISTRIBUTION WIDTH 15.8 % (12.0-15.0); WHITE BLOOD COUNT 9.9 x10^3/uL (4.8-10.8)
[2017-04-10 07:00] LABS: ALBUMIN 3.4 g/dL (3.2-5.5); ALBUMIN/GLOBULIN RATIO 1.3 (1.0-2.2); ALKALINE PHOSPHATASE 32 IU/L (42-121); ALT ALANINE AMINOTRANSFERASE 17 IU/L (10-60); AST ASPARTATE AMINOTRANSFERASE 17 IU/L (10-42); BILIRUBIN,TOTAL 0.3 mg/dL (0.2-1.0); BUN - BLOOD UREA NITROGEN 8 mg/dL (6-20); CALCIUM 8.7 mg/dL (8.5-10.3); CARBON DIOXIDE - CO2 22 mmol/L (21-32); CHLORIDE 103 mmol/L (101-111); CHOL/HDL RATIO 3.8 (<4.4); CHOLESTEROL 148 mg/dL; CREATININE 0.5 mg/dL (0.4-1.0); GFR - MDRD 142 (>89); GLUCOSE 95 mg/dL (70-100); HDL CHOLESTEROL 39 mg/dL; LDL CHOLESTEROL,CALCULATED 85 mg/dL; LDL/HDL RATIO 2.2 (<4.4); MAGNESIUM 1.9 mg/dL (1.7-2.8); SODIUM 135 mmol/L (135-145); VLDL CHOLESTEROL 24 mg/dL
[2017-04-10] MEDS: PRENATAL VITAMIN TABLET PO SCH (10:18)
[2017-04-10] MEDS: ASPIRIN EC 81 MG TABLET PO SCH (10:18)
--- NOTE | 2017-04-10 10:19 | PROVIDER PROGRESS NOTE ---
Subjective - Prog Note Date Prog Note Date: 04/10/17 Prog Note Time: 10:17 - Subjective Pt reports feeling: Improved (Pt has Nausia on the Shower. tolerating regulat diet.) Current Medications - Current Medications Current Medications: Labetolol 400 mg tid apresoline 20 mg Q6 hours Objective - Vital Signs/Intake & Output Reviewed Vital Signs: Yes Vital Signs: Vital Signs x48h Temp Pulse Resp BP Pulse Ox 04/10/17 08:37 36.8 C 96 20 125/62 99 04/10/17 06:35 36.9 C 75 16 130/78 98 Intake & Output: Intake & Output 04/07/17 04/08/17 04/09/17 04/10/17 23:59 23:59 23:59 23:59 Intake Total 1000 1200 490 Output Total 1250 350 Balance 1000 -50 140 - Objective General Appearance: positive: No acute distress, Alert Respiratory: positive: Chest non-tender, No respiratory distress, Breath sounds nml Cardiovascular: positive: Regular rate & rhythm, No murmur, No gallop Abdomen: positive: Non-tender, Nml bowel sounds Skin: positive: Color nml, No rash Neurologic/Psychiatric: positive: Oriented x3 - Lab Results Fish Bones: 04/10/17 06:10 04/10/17 06:10 Other Labs: Lab Results x24hrs 04/10/17 04/10/17 Range/Units 06:10 06:10 WBC 9.9 (4.8-10.8) x10^3/uL RBC 4.06 L (4.20-5.40) 10^6/uL Hgb 12.3 (12.0-16.0) g/dL Hct 37.0 (37.0-47.0) % MCV 91.0 (81.0-99.0) fL MCH 30.2 (27.0-31.0) pg MCHC 33.2 (32.0-36.0) g/dL RDW 15.8 H (12.0-15.0) % Plt Count 323 (130-450) 10^3/uL MPV 6.6 L (7.9-10.8) fL Neut # 7.1 H (1.5-6.6) 10^3/uL Lymph # 1.7 (1.5-3.5) 10^3/uL [place] # 0.9 (0.0-1.0) 10^3/uL Eos # 0.1 (0.0-0.7) 10^3/uL Baso # 0.0 (0.0-0.1) 10^3/uL Absolute Nucleated RBC 0.00 x10^3/uL Nucleated RBC % 0.0 /100WBC Sodium 135 (135-145) mmol/L Potassium 3.9 (3.5-5.0) mmol/L Chloride 103 (101-111) mmol/L Carbon Dioxide 22 (21-32) mmol/L Anion Gap 10.0 (6-13) BUN 8 (6-20) mg/dL Creatinine 0.5 (0.4-1.0) mg/dL Estimated GFR (MDRD) 142 (>89) Glucose 95 (70-100) mg/dL Calcium 8.7 (8.5-10.3) mg/dL Magnesium 1.9 (1.7-2.8) mg/dL Total Bilirubin 0.3 (0.2-1.0) mg/dL AST 17 (10-42) IU/L ALT 17 (10-60) IU/L Alkaline Phosphatase 32 L (42-121) IU/L Total Protein 6.0 L (6.7-8.2) g/dL Albumin 3.4 (3.2-5.5) g/dL Globulin 2.6 (2.1-4.2) g/dL Albumin/Globulin Ratio 1.3 (1.0-2.2) Triglycerides 121 ( - 149) mg/dL Cholesterol 148 ( - 199) mg/dL LDL Cholesterol, Calc 85 ( - 129) mg/dL VLDL Cholesterol 24 mg/dL HDL Cholesterol 39 L (60 - ) mg/dL LDL/HDL Ratio 2.2 (<4.4) Cholesterol/HDL Ratio 3.8 (<4.4) Assessment/Plan - Problem List (1) Hypertension affecting Impression: Pt has good control with current Labetolol 400 mg tid and apresoline 20 mg Q6 hours. She has an Appt with [facility] Wednesday. Send home. Pt has her meds. Followup in Clinic1 week. Qualifiers: Trimester: second trimester Qualified Code(s): O16.2 - Unspecified maternal hypertension, second trimester
[2017-04-10] MEDS: POLYETHYLENE GLYCOL 3350 17 GM PACKET PO SCH (10:22)
--- NOTE | 2017-04-10 10:23 | Discharge Plan ---
Discharge Plan Disposition: 01 Home, Self Care Condition: Good Diet: Regular Activity Restrictions: No Restrictions Shower Restrictions: No No Smoking: If you smoke, Please STOP! Call for help. Follow-up with: Johnathan Flores MD [Primary Care Provider] -
[2017-04-10 11:20] VITALS: BP 144/80
[2017-04-10 12:16] LABS: TOTAL PROTEIN,URINE TIMED 8 mg/dL
--- NOTE | 2017-04-10 12:29 | PROVIDER PROGRESS NOTE ---
Subjective - Prog Note Date Prog Note Date: 04/10/17 - Subjective Pt reports feeling: Improved Subjective: pt's BP is well controlled. pt denies any complaints, ready to be D/C today Current Medications - Current Medications Current Medications: Labetalol [Trandate] 400 mg PO TID 04/05/17 Aspirin 81 mg PO DAILY 04/08/17 Hydralazine HCl 20 mg PO Q6HR 04/08/17 Objective - Vital Signs/Intake & Output Reviewed Vital Signs: Yes Vital Signs: Vital Signs x48h Temp Pulse Resp BP Pulse Ox 04/10/17 11:18 36.8 C 87 18 144/80 H 99 04/10/17 10:00 133/69 H 04/10/17 08:37 36.8 C 96 20 125/62 99 04/10/17 06:35 36.9 C 75 16 130/78 98 Intake & Output: Intake & Output 04/07/17 04/08/17 04/09/17 04/10/17 23:59 23:59 23:59 23:59 Intake Total 1000 1200 490 Output Total 1250 350 Balance 1000 -50 140 - Objective General Appearance: positive: No acute distress, Alert. negative: Lethargic Eyes Bilateral: positive: Normal inspection, PERRL, No lid inflammation, Conjunctivae nml ENT: positive: ENT inspection nml, Pharynx nml, No signs of dehydration. negative: Purulent nasal drainage, Pharyngeal erythema, Oral lesions, Dry mucous membranes Neck: positive: Nml inspection, Thyroid nml, No JVD, Trachea midline. negative : Thyromegaly, Lymphadenopathy (R), Lymphadenopathy (L), Stiff neck, Swelling/ bruising, Tracheal deviation Respiratory: positive: Chest non-tender, No respiratory distress, Breath sounds nml. negative: Wheezes, Rales, Rhonchi Cardiovascular: positive: Regular rate & rhythm, No murmur, No gallop. negative : Irregularly irregular, Extrasystoles, Tachycardia, Bradycardia, Systolic murmur, Diastolic murmur Peripheral Pulses: 2+ Radial (R), 2+ Radial (L), 2+ Dorsalis pedis (R), 2+ Dorsalis pedis (L) Abdomen: positive: Non-tender, No organomegaly, Nml bowel sounds, No distention. negative: Tenderness, Guarding, Rebound Back: positive: Nml inspection. negative: CVA tenderness (R), CVA tenderness (L ) Skin: positive: Color nml, No rash, Warm, Dry. negative: Cyanosis, Diaphoresis , Pallor Extremities: positive: Non-tender, Full ROM, Nml appearance. negative: Calf tenderness, Joint swelling, Dixon's sign/cords Neurologic/Psychiatric: positive: Oriented x3, Motor nml, Sensation nml, Mood/ affect nml. negative: Sensory loss, Facial droop, Slurred/abnml speech, Depressed mood/affect - Lab Results Fish Bones: 04/10/17 06:10 04/10/17 06:10 Other Labs: Lab Results x24hrs 04/10/17 04/10/17 04/10/17 Range/Units 07:00 06:10 06:10 WBC 9.9 (4.8-10.8) x10^3/uL RBC 4.06 L (4.20-5.40) 10^6/uL Hgb 12.3 (12.0-16.0) g/dL Hct 37.0 (37.0-47.0) % MCV 91.0 (81.0-99.0) fL MCH 30.2 (27.0-31.0) pg MCHC 33.2 (32.0-36.0) g/dL RDW 15.8 H (12.0-15.0) % Plt Count 323 (130-450) 10^3/uL MPV 6.6 L (7.9-10.8) fL Neut # 7.1 H (1.5-6.6) 10^3/uL Lymph # 1.7 (1.5-3.5) 10^3/uL [place] # 0.9 (0.0-1.0) 10^3/uL Eos # 0.1 (0.0-0.7) 10^3/uL Baso # 0.0 (0.0-0.1) 10^3/uL Absolute Nucleated RBC 0.00 x10^3/uL Nucleated RBC % 0.0 /100WBC Sodium 135 (135-145) mmol/L Potassium 3.9 (3.5-5.0) mmol/L Chloride 103 (101-111) mmol/L Carbon Dioxide 22 (21-32) mmol/L Anion Gap 10.0 (6-13) BUN 8 (6-20) mg/dL Creatinine 0.5 (0.4-1.0) mg/dL Estimated GFR (MDRD) 142 (>89) Glucose 95 (70-100) mg/dL Calcium 8.7 (8.5-10.3) mg/dL Magnesium 1.9 (1.7-2.8) mg/dL Total Bilirubin 0.3 (0.2-1.0) mg/dL AST 17 (10-42) IU/L ALT 17 (10-60) IU/L Alkaline Phosphatase 32 L (42-121) IU/L Total Protein 6.0 L (6.7-8.2) g/dL Albumin 3.4 (3.2-5.5) g/dL Globulin 2.6 (2.1-4.2) g/dL Albumin/Globulin Ratio 1.3 (1.0-2.2) Triglycerides 121 ( - 149) mg/dL Cholesterol 148 ( - 199) mg/dL LDL Cholesterol, Calc 85 ( - 129) mg/dL VLDL Cholesterol 24 mg/dL HDL Cholesterol 39 L (60 - ) mg/dL LDL/HDL Ratio 2.2 (<4.4) Cholesterol/HDL Ratio 3.8 (<4.4) Ur Total Protein Timed 8 mg/dL Assessment/Plan - Problem List (1) HTN (hypertension) Impression: pt's BP is well controlled. pt state she is ready to d/c to home Thank Dr. Chinchilla to let us care of this pt.
[2017-04-10 12:37] LABS: TOTAL PROTEIN 24HR,URINE 176 mg/24hr (40-150); TOTAL VOLUME 24HRS,URINE 2200 mL
[2017-04-12 14:56] LABS: ANA SCREEN NEGATIVE (NEGATIVE)
== END 2017-04-10 11:30 | disposition home or self-care (01) ==
LOC: ED 16:56 → OBS 17:54
PROVIDERS: ADMIT Obstetrics & Gynecology; ATTEND Nurse Practitioner Gerontology
DX: O16.2 Unspecified maternal hypertension, second trimester (principal); O99.89 Other specified diseases and conditions complicating pregnancy, childbirth and the puerperium; H34.8112 Central retinal vein occlusion, right eye, stable; O99.352 Diseases of the nervous system complicating pregnancy, second trimester; G43.909 Migraine, unspecified, not intractable, without status migrainosus; Z3A.15 15 weeks gestation of pregnancy; Z79.82 Long term (current) use of aspirin; Z82.49 Family history of ischemic heart disease and other diseases of the circulatory system; Z82.3 Family history of stroke; Z63.79 Other stressful life events affecting family and household
CPT/HCPCS: 36415; 70551; 74181; 80053; 80061; 80306; 81001; 83735; 84156; 84439; 84443; 84550; 85025; 85651; 86038; 96374; 96376; 99218; 99283; A9270; 81003; 83721; 87086

== ENCOUNTER 2017-04-16 11:30 | Emergency (ER) | payer OTHER ==
--- NOTE | 2017-04-16 12:37 | ED Physician Documentation ---
PD HPI HEADACHE - Stated complaint Stated Complaint: NEAL - Chief complaint Chief Complaint: General - History obtained from History obtained from: Patient - History of Present Illness Timing - onset: How many days ago (5) Timing - onset during: Light activity Timing - details: Gradual onset, Still present, Waxing and waning Worst headache ever?: No: Worst headache ever? (has had migraines in the past, but currently with headaches recently related to marked hypertension in . Started new BP med 5 days ago and BP is improved. Getting readings much better the past 5 days with range of 110 to 140 systolic, so much better. Headache is left side and throbbing, worse with lights.) Location: Left Quality: Throbbing, Aching Worsened by: Light, Noise Contributing factors: Hypertension. No: Anticoagulated, Recent illness Recently seen: Clinic (OBGYN office due to very high BP in .) Review of Systems Constitutional: denies: Fever, Chills Eyes: reports: Photophobia. denies: Loss of vision, Decreased vision Nose: denies: Rhinorrhea / runny nose, Congestion Throat: denies: Sore throat Cardiac: denies: Chest pain / pressure Respiratory: denies: Dyspnea, Cough GI: reports: Abdominal Pain, Nausea. denies: Vomiting, Diarrhea Skin: denies: Rash, Lesions Neurologic: reports: Headache. denies: Focal weakness, Numbness, Confused, Altered mental status, Head injury PD PAST MEDICAL HISTORY - Past Medical History Cardiovascular: Murmur Respiratory: None Neuro: None Endocrine/Autoimmune: None GI: None LPTA: None : None HEENT: None Psych: None Musculoskeletal: None Derm: None - Past Surgical History Past Surgical History: Yes /LPTA: Breast reduction - Present Medications Home Medications: Ambulatory Orders Medication Instructions Recorded Confirmed Labetalol [Trandate] 400 mg PO TID 04/05/17 04/09/17 Aspirin 81 mg PO DAILY 04/08/17 04/08/17 Hydralazine HCl 40 mg PO BID 04/08/17 04/09/17 Cephalexin [Keflex] 500 mg PO TID #15 capsule 04/16/17 HYDROcod/ACETAM 5/325 [[place] 5/325] 1 tab PO Q6H PRN #15 tablet 04/16/17 Ondansetron Odt [Zofran] 4 mg TL Q6H PRN #15 tablet 04/16/17 Ondansetron [Zuplenz] 4 mg PO DAILY 04/16/17 amLODIPine [Norvasc] 5 mg PO BID 04/16/17 - Allergies Allergies/Adverse Reactions: Allergies Allergy/AdvReac Type Severity Reaction Status Date / Time No Known Drug Allergies Allergy Verified 04/16/17 11:50 - Social History Does the pt smoke?: No Smoking Status: Never smoker Does the pt drink ETOH?: No - Immunizations Immunizations are current?: Yes - POLST Patient has POLST: No PD ED PE NORMAL - Vitals Vital signs reviewed: Yes - General General: Alert and oriented X 3, Well developed/nourished - HEENT HEENT: Ears normal, Pharynx benign. 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, No motor deficit, No sensory deficit, Normal speech, Other Eye Opening: Spontaneous Motor: Obeys Commands Verbal: Oriented GCS Score: 15 - Psych Psych: Normal mood, Normal affect Results - Vitals Vitals: Oxygen O2 Source Room air - Labs Labs: Laboratory Tests 04/16/17 04/16/17 04/16/17 12:30 12:30 13:30 WBC 10.9 H RBC 4.01 L Hgb 12.5 Hct 35.6 L MCV 88.9 MCH 31.1 H MCHC 35.0 RDW 16.2 H Plt Count 326 MPV 7.0 L Neut # 8.4 H Lymph # 1.5 [place] # 0.8 Eos # 0.1 Baso # 0.0 Absolute Nucleated RBC 0.00 Nucleated RBC % 0.0 Sodium 134 L Potassium 3.7 Chloride 106 Carbon Dioxide 22 Anion Gap 6.0 BUN 10 Creatinine 0.6 Estimated GFR (MDRD) 115 Glucose 87 Calcium 8.8 Total Bilirubin 0.5 AST 19 ALT 16 Alkaline Phosphatase 39 L Total Protein 6.8 Albumin 3.8 Globulin 3.0 Albumin/Globulin Ratio 1.3 Lipase 40 Urine Color YELLOW Urine Clarity CLOUDY Urine pH 6.0 Ur Specific [place] >=1.030 H Urine Protein NEGATIVE Urine Glucose (UA) NEGATIVE Urine Ketones TRACE Urine Occult Blood NEGATIVE Urine Nitrite NEGATIVE Urine Bilirubin NEGATIVE Urine Urobilinogen 0.2 (NORMAL) Ur Leukocyte Esterase MODERATE H Urine RBC 0-5 Urine WBC 6-10 H Ur Epithelial Cells See Comments Below Ur Squamous Epith Cells MANY Squamous H Urine Bacteria Few Urine Yeast PRESENT Ur Microscopic Review INDICATED Urine Culture Comments NOT INDICATED PD MEDICAL DECISION MAKING - ED course Complexity details: considered differential (she is having headache similar to migraines. Has had high BP recently and started on Amlodipine 5 days ago. Has had headache for 5 days. Might be response to lower BP, consider side effect of the medication, though headache not listed as common side effect to it per [facility]. Headache improved with meds IV targeted at Migraine. ), d/w patient, d/w websphere consultant (Dr. Jose) Departure - Departure Disposition: 01 Home, Self Care Clinical Impression: UTI (urinary tract infection) Headache Qualifiers: Headache type: other vascular headache Qualified Code(s): G44.1 - Vascular headache, not elsewhere classified Migraine Qualifiers: Migraine type: without aura Status migrainosus presence: without status migrainosus Intractability: not intractable Qualified Code(s): G43.009 - Migraine without aura, not intractable, without status migrainosus Condition: Stable Record reviewed to determine appropriate education?: Yes Instructions: ED Cephalgia Unspecified, ED Headache Migraine, ED UTI Cystitis Female Follow-Up: Johnathan Flores MD [Primary Care Provider] - Idris Jose MD [Provider Admit Priv/Credential] - Prescriptions: Cephalexin [Keflex] 500 mg PO TID #15 capsule HYDROcod/ACETAM 5/325 [[place] 5/325] 1 tab PO Q6H PRN #15 tablet PRN Reason: Pain Ondansetron Odt [Zofran] 4 mg TL Q6H PRN #15 tablet PRN Reason: Nausea / Vomiting Comments: Continue the amlodipine blood pressure medicine. It seems to be working well. I think your developed a migraine headache and so hopefully this will stay away. If you have recurrent headaches then it might associate with the new medication and they may need to change it. At this point I would stay with it. Drink lots of fluids. Use ondansetron if needed for nausea. Hydrocodone if needed for residual headache. If you get a recurrent headache in the near future that is similar, it is okay to use your migraine type medicines that you have used in the past. Follow-up with [facility] [employer] [employer]. You do have mild bladder infection on urine test. Discharge Date/Time: 04/16/17 15:26
[2017-04-16] MEDS ORDERED: SODIUM CHLORIDE 0.9% 1,000 ML IV ONE (13:01)
[2017-04-16] MEDS ORDERED: KETOROLAC 60 MG/2 ML VIAL IVP STA (13:01)
[2017-04-16] MEDS ORDERED: METOCLOPRAMIDE 10 MG/2 ML VIAL IVP STA (13:01)
[2017-04-16] MEDS ORDERED: DEXAMETHASONE 10 MG/ML VIAL IVP STA (13:01)
[2017-04-16 13:17] LABS: BASOPHILS % (AUTO) 0.4 %; EOSINOPHILS # (AUTO) 0.1 10^3/uL (0.0-0.7); EOSINOPHILS % (AUTO) 1.1 %; HGB - HEMOGLOBIN 12.5 g/dL (12.0-16.0); LYMPHOCYTES # (AUTO) 1.5 10^3/uL (1.5-3.5); LYMPHOCYTES % (AUTO) 14.1 %; MEAN CORPUSCULAR HEMOGLOBIN 31.1 pg (27.0-31.0); MEAN CORPUSCULAR VOLUME 88.9 fL (81.0-99.0); MONOCYTES # (AUTO) 0.8 10^3/uL (0.0-1.0); MONOCYTES % (AUTO) 7.7 %; NEUTROPHILS # (AUTO) 8.4 10^3/uL (1.5-6.6); NEUTROPHILS % (AUTO) 76.7 %; PLT - PLATELET COUNT 326 10^3/uL (130-450); RED BLOOD COUNT 4.01 10^6/uL (4.20-5.40); RED CELL DISTRIBUTION WIDTH 16.2 % (12.0-15.0); WHITE BLOOD COUNT 10.9 x10^3/uL (4.8-10.8)
[2017-04-16 13:30] LABS: BILIRUBIN,URINE NEGATIVE (NEGATIVE); GLUCOSE, URINE (UA) NEGATIVE (NEGATIVE); KETONES,URINE (UA) TRACE mg/dL (NEGATIVE); LEUKOCYTE ESTERASE, URINE MODERATE (NEGATIVE); NITRITE,URINE NEGATIVE (NEGATIVE); OCCULT BLOOD,URINE NEGATIVE (NEGATIVE); PROTEIN,URINE NEGATIVE (NEGATIVE); UROBILINOGEN,URINE 0.2 (NORMAL) E.U./dL (NORMAL)
[2017-04-16 13:35] LABS: CLARITY,URINE CLOUDY (CLEAR)
[2017-04-16 13:46] LABS: RBC,URINE 0-5 /HPF (0-5); SQUAMOUS EPITHELIAL CELL,UR MANY Squamous (<= Few)
[2017-04-16 13:47] LABS: BACTERIA,URINE Few /HPF (None Seen); EPITHELIAL CELLS,UR See Comments Below /HPF (<= Few); YEAST,URINE PRESENT
[2017-04-16 13:55] LABS: ALBUMIN 3.8 g/dL (3.2-5.5); ALBUMIN/GLOBULIN RATIO 1.3 (1.0-2.2); BILIRUBIN,TOTAL 0.5 mg/dL (0.2-1.0); CALCIUM 8.8 mg/dL (8.5-10.3); CREATININE 0.6 mg/dL (0.4-1.0); TOTAL PROTEIN 6.8 g/dL (6.7-8.2)
[2017-04-16 14:18] VITALS: BP 125/75
== END 2017-04-16 15:26 | disposition home or self-care (01) ==
LOC: ED 11:30
DX: N39.0 Urinary tract infection, site not specified (principal); G44.1 Vascular headache, not elsewhere classified; G43.009 Migraine without aura, not intractable, without status migrainosus; I10 Essential (primary) hypertension
CPT/HCPCS: 36415; 80053; 81001; 81003; 83690; 85025; 87086; 96361; 96374; 96375; 99284

== ENCOUNTER 2017-07-16 08:00 | Outpatient (CLI) | payer OTHER ==
[2017-07-16 19:40] LABS: ALBUMIN 4.9 g/dL (3.2-5.5); ALBUMIN/GLOBULIN RATIO 1.7 (1.0-2.2); BILIRUBIN,TOTAL 0.6 mg/dL (0.2-1.0); CALCIUM 9.5 mg/dL (8.5-10.3); CREATININE 0.6 mg/dL (0.4-1.0); TOTAL PROTEIN 7.8 g/dL (6.7-8.2)
[2017-07-16 19:54] LABS: THYROID STIMULATING HORMONE 2.59 uIU/mL (0.34-5.60)
[2017-07-16 19:58] LABS: FREE T4 (FREE THYROXINE) 0.74 ng/dL (0.58-1.64)
== END 2017-07-16 08:01 | disposition home or self-care (01) ==
LOC: LAB.WCP 08:00
PROVIDERS: ATTEND Family Medicine
DX: I10 Essential (primary) hypertension (principal)
CPT/HCPCS: 36415; 80053; 82088; 84244; 84439; 84443

== ENCOUNTER 2018-11-22 15:20 | Emergency (ER) | payer OTHER, MEDICAID ==
[2018-11-22] MEDS ORDERED: diphenhydrAMINE INJ 50 MG/ML VIAL IM STA (15:55)
[2018-11-22] MEDS ORDERED: DEXAMETHASONE 10 MG/ML VIAL PO STA (15:55)
[2018-11-22] MEDS ORDERED: CHERRY SYRUP 10 ML UDC PO ONE (15:55)
--- NOTE | 2018-11-22 15:58 | ED Physician Documentation ---
History of Present Illness - Stated complaint Stated Complaint: POSS ALLERGIC REACTION - Chief complaint Chief Complaint: Allergic Rx - History obtained from History obtained from: Patient - History of Present Illness Timing: Today - Additonal information Additional information: 33-year-old female was eating a sandwich when she had sudden onset of swelling to the left upper lip. She did not have any associated pain with this she does have some mild burning now. She is on lisinopril. She has not had this reaction previously. She has a prior history of malignant hypertension and is on 3 antihypertensives. Review of Systems Constitutional: denies: Fever Eyes: denies: Decreased vision Ears: denies: Ear pain Nose: denies: Congestion Throat: denies: Sore throat Cardiac: denies: Chest pain / pressure Respiratory: denies: Dyspnea, Cough GI: denies: Abdominal Pain, Nausea, Vomiting : denies: Dysuria, Frequency PD PAST MEDICAL HISTORY - Past Medical History Cardiovascular: Murmur Respiratory: None Endocrine/Autoimmune: None GI: None ENTERTAINMENT AGENT: None : None HEENT: None Psych: None Musculoskeletal: None Derm: None - Past Surgical History Past Surgical History: Yes /ENTERTAINMENT AGENT: Breast reduction - Present Medications Home Medications: Ambulatory Orders Medication Instructions Recorded Confirmed Labetalol [Trandate] 400 mg PO TID 04/05/17 04/09/17 Aspirin 81 mg PO DAILY 04/08/17 04/08/17 Hydralazine HCl 40 mg PO BID 04/08/17 04/09/17 Cephalexin [Keflex] 500 mg PO TID #15 capsule 04/16/17 HYDROcod/ACETAM 5/325 [[place] 5/325] 1 tab PO Q6H PRN #15 tablet 04/16/17 Ondansetron Odt [Zofran] 4 mg TL Q6H PRN #15 tablet 04/16/17 Ondansetron [Zuplenz] 4 mg PO DAILY 04/16/17 amLODIPine [Norvasc] 5 mg PO BID 04/16/17 - Allergies Allergies/Adverse Reactions: Allergies Allergy/AdvReac Type Severity Reaction Status Date / Time No Known Drug Allergies Allergy Verified 04/16/17 11:50 - Social History Does the pt smoke?: No Smoking Status: Never smoker Does the pt drink ETOH?: No - Immunizations Immunizations are current?: Yes - POLST Patient has POLST: No PD ED PE NORMAL - Vitals Vital signs reviewed: Yes (hypertensive) - General General: Alert and oriented X 3, No acute distress, Well developed/nourished - HEENT HEENT: Atraumatic, PERRL, EOMI, Other (There is swelling of the left upper lip specifically and no swelling sublingual, soft pallet, uvula or tongue. 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 She is administered dexamethasone 10 mg orally and 25 mg of Benadryl IM and we will ask her to take Benadryl 25 mg every 6 hours for the next 2 days. We will take her off of her lisinopril. Departure - Departure Disposition: 01 Home, Self Care Clinical Impression: Angio-edema Qualifiers: Encounter type: initial encounter Qualified Code(s): T78.3XXA - Angioneurotic edema, initial encounter Condition: Stable Instructions: ED Angioedema Follow-Up: Johnathan Flores MD [Primary Care Provider] - Comments: Today it appears you have some angioedema of your left upper lip related to your blood pressure medication---lisinopril. Discontinue the use of the lisinopril and take Benadryl 25 mg every 6 hours for the next 2 days. Follow-up with Dr. Flores for blood pressure check.
[2018-11-22 16:39] VITALS: BP 140/92
== END 2018-11-22 16:38 | disposition home or self-care (01) ==
LOC: ED 15:20
DX: T78.3XXA Angioneurotic edema, initial encounter (principal); I10 Essential (primary) hypertension; Z79.899 Other long term (current) drug therapy; Z79.82 Long term (current) use of aspirin
CPT/HCPCS: 96372; 99283; 99284; A9270; J1200